=== PATIENT | female | born 1960 | race Caucasian/White ===

== ENCOUNTER 2019-09-15 10:44 | Inpatient (IN) | payer MEDICAID ==
[~2019-09-15] VITALS: Ht 165.1 cm; Wt 87.3 kg
[~2019-09-15 10:44] MED LIST: ALBU18 INH; CLON0.5T; DULO20CA PO; GABA100C; INSUPOW; QUET25TA37; TRAM50TA2
[2019-09-15 11:42] LABS: Basophils # (auto) 0 10 ^3/uL (0-0.2); Basophils % (auto) 0.4 % (0.0-2.0); Eosinophils # (auto) 0.2 10 ^3/uL (0-0.8); Eosinophils % (auto) 1.8 % (0.0-7.0); Hematocrit 35.9 % (36.0-46.0); Hemoglobin 12.4 g/dL (12.2-16.2); Lymphocytes # (auto) 2.8 10 ^3/uL (0.4-5.4); Lymphocytes % (auto) 33.3 % (10.0-50.0); Mean Corpuscular Hemoglobin 32.8 pg (28.0-32.0); Mean Corpuscular Hgb Conc. 34.6 g/dL (32.0-36.0); Mean Corpuscular Volume 94.7 fL (80.0-100.0); Monocytes # (auto) 0.4 10 ^3/uL (0-1.3); Monocytes % (auto) 5.2 % (0.0-12.0); Neutrophils # (auto) 4.9 10 ^3/uL (1.6-8.6); Neutrophils % (auto) 59.3 % (37.0-80.0); Nucleated Red Blood Cells % 0.1 %; Platelet Count (auto) 336 10^3/uL (140-450); Red Blood Cells 3.79 10^6/uL (4.0-5.20); Red Cell Distribution Width 12.7 % (11.8-14.3); White Blood Cell 8.3 10^3/uL (4.4-10.8)
[2019-09-15 12:01] LABS: Albumin 3.8 g/dL (3.4-5.0); Calcium 10.6 mg/dL (8.5-10.1)
[2019-09-15 12:04] LABS: BUN/Creatinine Ratio 12.9; Bilirubin, Total 0.5 mg/dL (0.2-1.0); Total Protein 7.4 g/dL (6.4-8.2)
[2019-09-15] MEDS ORDERED: NITROGLYCERIN 0.4 MG SL TAB SL PRN (14:00)
[2019-09-15] MEDS ORDERED: MORPHINE SULF INJ 2 MG/ML SYRINGE 1ML IV PRN (14:00)
[2019-09-15] MEDS: SODIUM CHLORIDE 0.9% 1,000 ML IV SCH (14:22)
[2019-09-15 20:03] VITALS: BP 157/88
[2019-09-15] MEDS ORDERED: METF-370 PO (21:07)
[2019-09-15] MEDS ORDERED: LISI-646 PO (21:07)
[2019-09-15] MEDS ORDERED: METO-158 PO (21:07)
[2019-09-15] MEDS ORDERED: BUPR-40 PO (21:48)
[2019-09-15] MEDS ORDERED: LOVA20TA4 PO (21:48)
[2019-09-15] MEDS ORDERED: HCTZ25T PO (21:48)
[2019-09-15] MEDS ORDERED: LAMO25TA2 PO (21:48)
[2019-09-15] MEDS ORDERED: METO25TA5 PO (21:48)
[2019-09-15] MEDS ORDERED: BISA-13 PO (21:48)
[2019-09-15 22:00] VITALS: BP 157/88
[2019-09-15] MEDS ORDERED: BISACODYL 5 MG EC TAB PO PRN (22:45)
[2019-09-15] MEDS: lamoTRIgine 25 MG TAB PO SCH (23:02)
[2019-09-15] MEDS: METOPROLOL TARTRATE 25 MG TAB PO SCH (23:02)
[2019-09-16 05:00] VITALS: BP 153/94
[2019-09-16] MEDS: SODIUM CHLORIDE 0.9% 1,000 ML IV SCH ×3 (06:18→18:15)
[2019-09-16 09:04] VITALS: BP 124/60
[2019-09-16] MEDS: buPROPion HCL 75 MG TAB PO SCH (10:10)
[2019-09-16] MEDS: DULoxetine HCL 30 MG CAP PO SCH (10:10)
[2019-09-16] MEDS: METOPROLOL TARTRATE 25 MG TAB PO SCH ×2 (10:11→23:04)
[2019-09-16] MEDS: HCTZ 25 MG TAB PO SCH (10:11)
[2019-09-16] MEDS: LISINOPRIL 20 MG TAB PO SCH (10:11)
[2019-09-16] MEDS: lamoTRIgine 25 MG TAB PO SCH ×2 (10:11→23:02)
[2019-09-16 13:00] VITALS: BP 149/81
[2019-09-16] MEDS ORDERED: HYDRX10T PO (13:44)
[2019-09-16] MEDS ORDERED: DULO1CAP6 PO (13:50)
[2019-09-16] MEDS ORDERED: LISI-707 PO (13:51)
[2019-09-16] MEDS ORDERED: IBUP800T24 PO (15:27)
[2019-09-16 16:14] LABS: BUN/Creatinine Ratio 12.7; Calcium 10.5 mg/dL (8.5-10.1); Potassium 4.5 mmol/L (3.5-5.1)
[2019-09-16 17:11] VITALS: BP 133/79
[2019-09-16] MEDS: HYDROcodone-ACET 5/325MG TAB PO PRN (21:00)
[2019-09-16] MEDS ORDERED: DEXTROSE (50%) 50ML SYRG IV PRN (21:30)
[2019-09-16] MEDS ORDERED: ALBUTEROL SULF 2.5 MG/0.5ML(0.5%) NEB SOLN NEB PRN (21:30)
[2019-09-16 22:00] VITALS: BP 151/83
[2019-09-16] MEDS ORDERED: ATORVASTATIN 20 MG TAB PO SCH (22:00)
[2019-09-16 22:33] LABS: BUN/Creatinine Ratio 18.3; Calcium 10.1 mg/dL (8.5-10.1); Potassium 3.9 mmol/L (3.5-5.1)
[2019-09-16 22:59] VITALS: BP 133/79
[2019-09-16] MEDS: ACETAMINOPHEN 325 MG TAB PO PRN (23:06)
[2019-09-17] MEDS: SODIUM CHLORIDE 1 GM TAB PO SCH ×2 (01:01→09:59)
[2019-09-17] MEDS: ACCU-CHEK COMFORT CURVE STRIP VI SCH ×5 (01:02→16:14)
[2019-09-17 05:00] VITALS: BP 156/75
[2019-09-17] MEDS: InsuLIN REG 1unit/0.01ml Soln (100units/ml) SC SCH ×5 (05:28→16:16)
[2019-09-17 07:14] LABS: Basophils # (auto) 0 10 ^3/uL (0-0.2); Basophils % (auto) 0.6 % (0.0-2.0); Eosinophils # (auto) 0.3 10 ^3/uL (0-0.8); Eosinophils % (auto) 4.2 % (0.0-7.0); Hematocrit 34.3 % (36.0-46.0); Hemoglobin 11.7 g/dL (12.2-16.2); Lymphocytes # (auto) 2.4 10 ^3/uL (0.4-5.4); Lymphocytes % (auto) 40.5 % (10.0-50.0); Mean Corpuscular Hemoglobin 32.9 pg (28.0-32.0); Mean Corpuscular Hgb Conc. 34.2 g/dL (32.0-36.0); Mean Corpuscular Volume 96.2 fL (80.0-100.0); Monocytes # (auto) 0.4 10 ^3/uL (0-1.3); Monocytes % (auto) 6.1 % (0.0-12.0); Neutrophils # (auto) 2.9 10 ^3/uL (1.6-8.6); Neutrophils % (auto) 48.6 % (37.0-80.0); Nucleated Red Blood Cells % 0.2 %; Platelet Count (auto) 285 10^3/uL (140-450); Red Blood Cells 3.57 10^6/uL (4.0-5.20); Red Cell Distribution Width 12.6 % (11.8-14.3)
[2019-09-17 07:43] LABS: Calcium 9.6 mg/dL (8.5-10.1); Potassium 3.8 mmol/L (3.5-5.1)
[2019-09-17] MEDS: HYDROcodone-ACET 5/325MG TAB PO PRN ×2 (08:06→14:53)
[2019-09-17 09:00] VITALS: BP 162/90
[2019-09-17] MEDS: DULoxetine HCL 30 MG CAP PO SCH (09:59)
[2019-09-17] MEDS: lamoTRIgine 25 MG TAB PO SCH (10:00)
[2019-09-17] MEDS: HCTZ 25 MG TAB PO SCH (10:00)
[2019-09-17] MEDS: METOPROLOL TARTRATE 25 MG TAB PO SCH (10:01)
[2019-09-17] MEDS: LISINOPRIL 20 MG TAB PO SCH (10:01)
[2019-09-17] MEDS: buPROPion HCL 75 MG TAB PO SCH (10:01)
[2019-09-17] MEDS: ACETAMINOPHEN 325 MG TAB PO PRN (11:26)
[2019-09-17 13:03] VITALS: BP 156/88
[2019-09-17] MEDS ORDERED: LISI-646 PO ×2 (14:16→14:22)
[2019-09-17] MEDS ORDERED: SODC1T PO (14:22)
[2019-09-17 15:20] VITALS: BP 158/88
== END 2019-09-17 16:42 | disposition home or self-care (01) | DRG 426 ==
LOC: ER 10:44 → TELE 10:45 → TELE-CENTR 20:01
PROVIDERS: ADMIT Internal Medicine; ATTEND Internal Medicine
DX: E87.1 Hypo-osmolality and hyponatremia (principal); E11.65 Type 2 diabetes mellitus with hyperglycemia; F41.9 Anxiety disorder, unspecified; F17.210 Nicotine dependence, cigarettes, uncomplicated; E66.01 Morbid (severe) obesity due to excess calories; I10 Essential (primary) hypertension; F32.9 Major depressive disorder, single episode, unspecified; F20.9 Schizophrenia, unspecified; Z88.6 Allergy status to analgesic agent; Z91.041 Radiographic dye allergy status; Z79.899 Other long term (current) drug therapy; Z79.4 Long term (current) use of insulin; Z68.31 Body mass index [BMI] 31.0-31.9, adult
CPT/HCPCS: 36415; 70450; 80048; 80053; 82962; 85025; 96360; 99291; G0378; J1815

== ENCOUNTER 2021-06-21 23:59 | Emergency (ER) | payer MEDICAID ==
[~2021-06-21] VITALS: Ht 165.1 cm; Wt 88.9 kg
[~2021-06-21 23:59] MED LIST changes: +BISA-13 PO; +BUPR150T8 PO; -CLON0.5T; +DULO1CAP6 PO; -DULO20CA PO; -GABA100C; +HYDRX10T PO; -INSUPOW; +LAMO25TA2 PO; +LISI20TA28 PO; +LOVA20TA4 PO; +METF-370 PO; +METO25TA5 PO; -QUET25TA37; +SODC1T PO; -TRAM50TA2
[2021-06-22 01:43] LABS: Basophils # (auto) 0.1 10 ^3/uL (0-0.2); Basophils % (auto) 0.9 % (0.0-2.0); Eosinophils # (auto) 0.1 10 ^3/uL (0-0.8); Eosinophils % (auto) 1.8 % (0.0-7.0); Hemoglobin 12.7 g/dL (12.2-16.2); Lymphocytes # (auto) 0.5 10 ^3/uL (0.4-5.4); Lymphocytes % (auto) 5.8 % (10.0-50.0); Mean Corpuscular Hgb Conc. 34.3 g/dL (32.0-36.0); Mean Corpuscular Volume 93.5 fL (80.0-100.0); Monocytes # (auto) 0.2 10 ^3/uL (0-1.3); Monocytes % (auto) 2.1 % (0.0-12.0); Neutrophils # (auto) 7.2 10 ^3/uL (1.6-8.6); Neutrophils % (auto) 89.4 % (37.0-80.0); Red Blood Cells 3.96 10^6/uL (4.0-5.20); Red Cell Distribution Width 14.9 % (11.8-14.3); White Blood Cell 8.1 10^3/uL (4.4-10.8)
[2021-06-22 01:59] LABS: Potassium 3.6 mmol/L (3.5-5.1)
[2021-06-22] MEDS ORDERED: ACETAMINOPHEN 325 MG TAB PO ONE (02:00)
[2021-06-22 02:02] LABS: Albumin 3.1 g/dL (3.4-5.0); Calcium 9.2 mg/dL (8.5-10.1)
[2021-06-22 02:15] LABS: Bilirubin, Total 0.6 mg/dL (0.2-1.0); Total Protein 6.7 g/dL (6.4-8.2)
[2021-06-22 11:00] VITALS: BP 136/77
== END 2021-06-22 11:21 | disposition left against medical advice (07) ==
LOC: ER 06-22 00:05
DX: R07.89 Other chest pain (principal); J45.909 Unspecified asthma, uncomplicated; E11.9 Type 2 diabetes mellitus without complications; I10 Essential (primary) hypertension; Z87.891 Personal history of nicotine dependence
CPT/HCPCS: 36415; 71045; 80053; 83880; 84484; 85025; 93005

== ENCOUNTER 2021-09-09 11:47 | Emergency (ER) | payer MEDICAID ==
[~2021-09-09] VITALS: Ht 165.1 cm; Wt 93.4 kg
[2021-09-09 11:53] VITALS: BP 161/87
== END 2021-09-09 15:08 | disposition home or self-care (01) ==
LOC: ER 11:47
DX: S05.01XA Injury of conjunctiva and corneal abrasion without foreign body, right eye, initial encounter (principal); I10 Essential (primary) hypertension; I25.2 Old myocardial infarction; E11.9 Type 2 diabetes mellitus without complications; J45.909 Unspecified asthma, uncomplicated; Z95.1 Presence of aortocoronary bypass graft; Z87.891 Personal history of nicotine dependence; Z79.899 Other long term (current) drug therapy; Z88.8 Allergy status to other drugs, medicaments and biological substances; X58.XXXA Exposure to other specified factors, initial encounter; Y93.89 Activity, other specified; Y92.89 Other specified places as the place of occurrence of the external cause; Y99.8 Other external cause status

== ENCOUNTER 2021-10-11 22:24 | Inpatient (IN) | payer MEDICAID ==
[~2021-10-11] VITALS: Ht 172.7 cm; Wt 86.3 kg
[2021-10-11] MEDS ORDERED: SODIUM CHLORIDE 0.9% 500 ML IV ONE (23:15)
[2021-10-12] MEDS ORDERED: ACETAMINOPHEN 325 MG TAB PO ONE (01:45)
[2021-10-12 01:46] LABS: Basophils # (auto) 0 10 ^3/uL (0-0.2); Basophils % (auto) 0.5 % (0.0-2.0); Eosinophils # (auto) 0.2 10 ^3/uL (0-0.8); Eosinophils % (auto) 2.6 % (0.0-7.0); Hematocrit 31.1 % (36.0-46.0); Hemoglobin 10.8 g/dL (12.2-16.2); Lymphocytes % (auto) 37.3 % (10.0-50.0); Mean Corpuscular Hemoglobin 33.4 pg (28.0-32.0); Mean Corpuscular Hgb Conc. 34.7 g/dL (32.0-36.0); Mean Corpuscular Volume 96.3 fL (80.0-100.0); Monocytes # (auto) 0.5 10 ^3/uL (0-1.3); Monocytes % (auto) 5.9 % (0.0-12.0); Neutrophils # (auto) 4.3 10 ^3/uL (1.6-8.6); Neutrophils % (auto) 53.7 % (37.0-80.0); Nucleated Red Blood Cells % 0.1 %; Red Blood Cells 3.23 10^6/uL (4.0-5.20)
[2021-10-12 02:08] LABS: Alanine Aminotransferase 27 U/L (13-56); Albumin 3.4 g/dL (3.4-5.0); Anion Gap 12 (5-15); BUN/Creatinine Ratio 14.9; Blood Alcohol < 3.0 mg/dL (0-5); Blood Urea Nitrogen 20 mg/dL (7-18); Calcium 9.9 mg/dL (8.5-10.1); Carbon Dioxide 21 mmol/L (21-32); Chloride 92 mmol/L (98-107); GFR African American 52 mL/min; GFR Non-African American 43 mL/min; Glucose 278 mg/dL (74-106); Magnesium 1.1 mg/dL (1.6-2.6); Potassium 3.2 mmol/L (3.5-5.1); Sodium 125 mmol/L (136-145)
[2021-10-12 02:11] LABS: Alkaline Phosphatase 82 U/L (45-117); Aspartate Aminotransferase 16 U/L (15-37); Bilirubin, Total 0.9 mg/dL (0.2-1.0); Total Protein 6.8 g/dL (6.4-8.2)
[2021-10-12] MEDS ORDERED: SODIUM CHLORIDE 0.9% 1,000 ML IV ONE (02:30)
[2021-10-12] MEDS ORDERED: DEXTROSE (50%) 50ML SYRG IV PRN (03:15)
[2021-10-12] MEDS ORDERED: LORazepam 0.5 MG TAB PO PRN (03:15)
[2021-10-12] MEDS ORDERED: ONDANSETRON HCL 4 MG/2 ML VIAL IV PRN (03:15)
[2021-10-12] MEDS ORDERED: MORPHINE SULFATE INJ 2 MG/ml SYRG IV PRN (03:15)
[2021-10-12] MEDS ORDERED: ACETAMINOPHEN 325 MG TAB PO PRN (03:15)
[2021-10-12] MEDS: SODIUM CHLORIDE 0.9% 1,000 ML IV SCH ×2 (03:15→20:28)
[2021-10-12] MEDS ORDERED: DOCUSATE SOD 100 MG CAP PO PRN (03:15)
[2021-10-12] MEDS: InsuLIN REG 1unit/0.01ml Soln (100units/ml) SC SCH ×5 (04:00→20:35)
[2021-10-12] MEDS: ACCU-CHEK COMFORT CURVE STRIP VI SCH ×5 (04:00→20:35)
[2021-10-12] MEDS: POTASSIUM CHL 20MEQ/100ML 100 ML IV SCH ×2 (06:00→08:32)
[2021-10-12] MEDS: HYDROcodone-ACET 5/325MG TAB PO PRN ×2 (07:10→15:55)
[2021-10-12 09:34] LABS: Urine Bacteria FEW /hpf (None Seen); Urine Blood Negative /uL (Negative); Urine Budding Yeast MODERATE /hpf (None Seen); Urine Specific Gravity 1.011 (1.001-1.035); Urine WBC 6 /hpf (0 - 5)
[2021-10-12 09:42] LABS: Alcohol, Urine < 3.0 mg/dL (0-10); Amphetamine Screen, Urine NEGATIVE (NEGATIVE); Barbiturate Scree,Urine NEGATIVE (NEGATIVE); Benzodiazephine Screen, Urine NEGATIVE (NEGATIVE); Cannabinoid Screen, Urine NEGATIVE (NEGATIVE); Cocaine Screen, Urine NEGATIVE (NEGATIVE); Opiate Scree,Urine NEGATIVE (NEGATIVE); Phencyclidine Screen, Urine NEGATIVE (NEGATIVE)
[2021-10-12] MEDS: metroNIDAZOLE 500MG/100ML 100 ML IV SCH ×2 (13:25→22:34)
[2021-10-12 15:49] LABS: INR 1.07 (0.9-1.15)
[2021-10-12] MEDS ORDERED: HAL5T PO (16:00)
[2021-10-12] MEDS ORDERED: TRAZ100T3 PO (16:00)
[2021-10-12 17:00] VITALS: BP 111/65
[2021-10-12 22:00] VITALS: BP 118/71
[2021-10-12] MEDS: PANTOPRAZOLE 40 MG/10 ML VIAL INJ IV SCH (22:33)
[2021-10-13] MEDS: ACCU-CHEK COMFORT CURVE STRIP VI SCH ×6 (00:25→22:40)
[2021-10-13] MEDS: InsuLIN REG 1unit/0.01ml Soln (100units/ml) SC SCH ×6 (00:26→22:41)
[2021-10-13 05:00] VITALS: BP 110/79
[2021-10-13] MEDS: metroNIDAZOLE 500MG/100ML 100 ML IV SCH ×3 (05:45→21:32)
[2021-10-13 07:01] LABS: Basophils # (auto) 0 10 ^3/uL (0-0.2); Basophils % (auto) 0.7 % (0.0-2.0); Eosinophils # (auto) 0.2 10 ^3/uL (0-0.8); Eosinophils % (auto) 4.6 % (0.0-7.0); Hematocrit 29.6 % (36.0-46.0); Hemoglobin 10.4 g/dL (12.2-16.2); Lymphocytes % (auto) 39.3 % (10.0-50.0); Mean Corpuscular Hemoglobin 33.7 pg (28.0-32.0); Mean Corpuscular Hgb Conc. 35.2 g/dL (32.0-36.0); Mean Corpuscular Volume 95.6 fL (80.0-100.0); Monocytes # (auto) 0.4 10 ^3/uL (0-1.3); Monocytes % (auto) 7.3 % (0.0-12.0); Neutrophils # (auto) 2.4 10 ^3/uL (1.6-8.6); Neutrophils % (auto) 48.1 % (37.0-80.0); Nucleated Red Blood Cells % 0.2 %
[2021-10-13 07:13] LABS: Potassium 3.3 mmol/L (3.5-5.1)
[2021-10-13 07:24] LABS: Albumin 2.9 g/dL (3.4-5.0); BUN/Creatinine Ratio 17.1; Bilirubin, Total 0.7 mg/dL (0.2-1.0); Calcium 9.6 mg/dL (8.5-10.1); Total Protein 6.2 g/dL (6.4-8.2)
[2021-10-13 09:00] VITALS: BP 103/61
[2021-10-13] MEDS ORDERED: LIDOCAINE VISCOUS 2% 15ML UD ONE (09:09)
[2021-10-13] MEDS ORDERED: SODIUM CHLORIDE LOCK 10 ML ONE (09:09)
[2021-10-13] MEDS ORDERED: fentaNYL CITRATE 100 MCG/2 ML VL ONE (09:10)
[2021-10-13] MEDS ORDERED: diphenhdrAMINE HCL 50 MG/1 ML VL ONE (09:10)
[2021-10-13] MEDS ORDERED: MIDAZOLAM HCL 5 MG/ML-1ML VIAL ONE (09:10)
[2021-10-13] MEDS: CEFTRIAXONE SODIUM 2 GM in D5W 5% 50 ML IV SCH (10:00)
[2021-10-13] MEDS: PANTOPRAZOLE 40 MG/10 ML VIAL INJ IV SCH ×2 (11:07→21:33)
[2021-10-13] MEDS: HYDROcodone-ACET 5/325MG TAB PO PRN ×2 (11:07→18:19)
[2021-10-13] MEDS ORDERED: POTASSIUM CHL 20 Meq TABLET PO ONE (11:45)
[2021-10-13] MEDS ORDERED: hydrOXYzine HCL 10 MG TAB PO PRN (12:15)
[2021-10-13] MEDS: SODIUM CHLORIDE 0.9% 1,000 ML IV SCH (12:23)
[2021-10-13 13:00] VITALS: BP 157/87
[2021-10-13 17:00] VITALS: BP 137/79
[2021-10-13] MEDS: HALOPERIDOL 5 MG TAB PO SCH (18:19)
[2021-10-13] MEDS ORDERED: SOTALOL HCL 80 MG TAB PO ONE (20:45)
[2021-10-13] MEDS ORDERED: CYCLOPENTOLATE HCL 1% OPTH(EYE) SOL 2ML RIGHTEYE ONE (20:45)
[2021-10-13] MEDS ORDERED: METOPROLOL SUCCINATE XL 50 MG TAB PO ONE (20:45)
[2021-10-13] MEDS: TEMAZEPAM 15 MG CAP PO PRN (21:39)
[2021-10-13 22:00] VITALS: BP 141/82
[2021-10-13] MEDS: ERYTHROMY OPTH OINT 5mg/gm 1gm or 3.5gm tube OP SCH (22:00)
[2021-10-13] MEDS: DORZOLAMIDE HCL 2% OPTH(EYE) SOL 10ML RIGHTEYE SCH (22:00)
[2021-10-14] VITALS (7 sets, daily range): BP systolic 125–191; BP diastolic 72–91
[2021-10-14] MEDS: ACCU-CHEK COMFORT CURVE STRIP VI SCH ×6 (01:10→20:17)
[2021-10-14] MEDS: InsuLIN REG 1unit/0.01ml Soln (100units/ml) SC SCH ×6 (01:10→20:21)
[2021-10-14] MEDS: ERYTHROMY OPTH OINT 5mg/gm 1gm or 3.5gm tube OP SCH ×6 (02:00→22:15)
[2021-10-14] MEDS ORDERED: POLYMYXIN B OP SCH (04:00)
[2021-10-14] MEDS ORDERED: TRIMETHOPRIM OP SCH (04:00)
[2021-10-14] MEDS: HYDROcodone-ACET 5/325MG TAB PO PRN ×3 (04:58→17:32)
[2021-10-14] MEDS: metroNIDAZOLE 500MG/100ML 100 ML IV SCH (05:00)
[2021-10-14] MEDS: SODIUM CHLORIDE 0.9% 1,000 ML IV SCH ×2 (05:11→21:55)
[2021-10-14] MEDS: DORZOLAMIDE HCL 2% OPTH(EYE) SOL 10ML RIGHTEYE SCH (05:12)
[2021-10-14] MEDS: CYCLOPENTOLATE HCL 1% OPTH(EYE) SOL 2ML RIGHTEYE SCH ×3 (05:12→22:16)
[2021-10-14 06:36] LABS: Basophils # (auto) 0 10 ^3/uL (0-0.2); Basophils % (auto) 0.6 % (0.0-2.0); Eosinophils # (auto) 0.2 10 ^3/uL (0-0.8); Eosinophils % (auto) 3.2 % (0.0-7.0); Hematocrit 30.3 % (36.0-46.0); Hemoglobin 10.4 g/dL (12.2-16.2); Lymphocytes % (auto) 31.5 % (10.0-50.0); Mean Corpuscular Hgb Conc. 34.5 g/dL (32.0-36.0); Mean Corpuscular Volume 95.6 fL (80.0-100.0); Monocytes # (auto) 0.4 10 ^3/uL (0-1.3); Monocytes % (auto) 6.2 % (0.0-12.0); Neutrophils # (auto) 3.8 10 ^3/uL (1.6-8.6); Neutrophils % (auto) 58.5 % (37.0-80.0); Nucleated Red Blood Cells % 0.1 %; Red Blood Cells 3.17 10^6/uL (4.0-5.20); Red Cell Distribution Width 14.2 % (11.8-14.3); White Blood Cell 6.4 10^3/uL (4.4-10.8)
[2021-10-14 06:59] LABS: Albumin 2.9 g/dL (3.4-5.0); BUN/Creatinine Ratio 16.9; Calcium 9.6 mg/dL (8.5-10.1)
[2021-10-14 07:01] LABS: Bilirubin, Total 0.4 mg/dL (0.2-1.0); Total Protein 6.1 g/dL (6.4-8.2)
[2021-10-14] MEDS ORDERED: DULOXETINE HCL 60 MG PO SCH (10:00)
[2021-10-14] MEDS ORDERED: METOPROLOL SUCCINATE XL 50 MG TAB PO SCH (10:00)
[2021-10-14] MEDS ORDERED: SOTALOL HCL 80 MG TAB PO SCH (10:00)
[2021-10-14] MEDS: SOTALOL HCL 80 MG TAB PO SCH ×2 (10:11→22:15)
[2021-10-14] MEDS: CEFTRIAXONE SODIUM 2 GM in D5W 5% 50 ML IV SCH (10:12)
[2021-10-14] MEDS: PANTOPRAZOLE 40 MG/10 ML VIAL INJ IV SCH ×2 (10:12→22:16)
[2021-10-14] MEDS: HALOPERIDOL 5 MG TAB PO SCH (17:18)
[2021-10-14] MEDS ORDERED: cloNIDine 0.1 mg/24hr 7 DAY PATCH TD SCH (21:45)
[2021-10-14] MEDS ORDERED: LISINOPRIL 20 MG TAB PO ONE (21:45)
[2021-10-14] MEDS ORDERED: hydrALAZINE HCL 20 MG/ML VL IV PRN (21:45)
[2021-10-14] MEDS: DORZOLAMIDE HCL RIGHTEYE SCH (22:16)
[2021-10-14] MEDS: TIMOLOL MALEATE RIGHTEYE SCH (22:16)
[2021-10-14] MEDS: TEMAZEPAM 15 MG CAP PO PRN (22:19)
[2021-10-15] MEDS: ACCU-CHEK COMFORT CURVE STRIP VI SCH ×5 (00:12→16:29)
[2021-10-15] MEDS: InsuLIN REG 1unit/0.01ml Soln (100units/ml) SC SCH ×5 (01:06→16:28)
[2021-10-15] MEDS: ERYTHROMY OPTH OINT 5mg/gm 1gm or 3.5gm tube OP SCH ×5 (02:00→17:51)
[2021-10-15 05:00] VITALS: BP 154/82
[2021-10-15] MEDS: CYCLOPENTOLATE HCL 1% OPTH(EYE) SOL 2ML RIGHTEYE SCH ×2 (05:29→14:07)
[2021-10-15 05:50] LABS: Basophils # (auto) 0 10 ^3/uL (0-0.2); Basophils % (auto) 0.7 % (0.0-2.0); Eosinophils # (auto) 0.2 10 ^3/uL (0-0.8); Eosinophils % (auto) 2.9 % (0.0-7.0); Hematocrit 33.7 % (36.0-46.0); Hemoglobin 11.6 g/dL (12.2-16.2); Lymphocytes # (auto) 2.8 10 ^3/uL (0.4-5.4); Lymphocytes % (auto) 37.9 % (10.0-50.0); Mean Corpuscular Hgb Conc. 34.5 g/dL (32.0-36.0); Mean Corpuscular Volume 95.7 fL (80.0-100.0); Monocytes # (auto) 0.5 10 ^3/uL (0-1.3); Monocytes % (auto) 7.1 % (0.0-12.0); Neutrophils # (auto) 3.8 10 ^3/uL (1.6-8.6); Neutrophils % (auto) 51.4 % (37.0-80.0); Red Blood Cells 3.52 10^6/uL (4.0-5.20); Red Cell Distribution Width 14.6 % (11.8-14.3); White Blood Cell 7.3 10^3/uL (4.4-10.8)
[2021-10-15 06:05] LABS: Albumin 3.4 g/dL (3.4-5.0); Calcium 10.8 mg/dL (8.5-10.1)
[2021-10-15 06:07] LABS: BUN/Creatinine Ratio 12.5
[2021-10-15 06:10] LABS: Bilirubin, Total 0.5 mg/dL (0.2-1.0)
[2021-10-15 06:20] VITALS: BP 129/74
[2021-10-15] MEDS: HYDROcodone-ACET 5/325MG TAB PO PRN ×2 (08:57→14:10)
[2021-10-15 09:00] VITALS: BP 148/68
[2021-10-15] MEDS ORDERED: LISINOPRIL 20 MG TAB PO SCH (10:00)
[2021-10-15] MEDS: PANTOPRAZOLE 40 MG/10 ML VIAL INJ IV SCH (10:28)
[2021-10-15] MEDS: SOTALOL HCL 80 MG TAB PO SCH (10:32)
[2021-10-15] MEDS: DORZOLAMIDE HCL RIGHTEYE SCH (10:34)
[2021-10-15] MEDS: TIMOLOL MALEATE RIGHTEYE SCH (10:34)
[2021-10-15 13:00] VITALS: BP 148/92
[2021-10-15] MEDS ORDERED: amLODIPine BESYLATE 5 MG TAB PO SCH (13:32)
[2021-10-15] MEDS ORDERED: HYDR-4902 PO (14:02)
[2021-10-15] MEDS ORDERED: PANT40TA2 PO (14:02)
[2021-10-15] MEDS ORDERED: AML5T PO (14:02)
[2021-10-15] MEDS: SODIUM CHLORIDE 0.9% 1,000 ML IV SCH (14:07)
[2021-10-15 15:14] VITALS: BP 130/74
[2021-10-15 17:00] VITALS: BP 158/88
[2021-10-15] MEDS: HALOPERIDOL 5 MG TAB PO SCH (17:51)
== END 2021-10-15 19:38 | disposition home or self-care (01) | DRG 241 ==
LOC: ER 22:24 → EDBD 22:24 → OVERFLOW 10-12 03:15 → EAST 10-12 12:32 → CENTRAL 10-12 14:46
PROVIDERS: ADMIT Hospitalist; ATTEND Internal Medicine
PROC: 0DB68ZX Excision of Stomach, Via Natural or Artificial Opening Endoscopic, Diagnostic (ICD-10-PCS; principal; 2021-10-13 10:08)
DX: K29.71 Gastritis, unspecified, with bleeding (principal); E87.1 Hypo-osmolality and hyponatremia; K52.9 Noninfective gastroenteritis and colitis, unspecified; R55 Syncope and collapse; E87.6 Hypokalemia; E11.9 Type 2 diabetes mellitus without complications; Z20.822 Contact with and (suspected) exposure to COVID-19; I10 Essential (primary) hypertension; J45.909 Unspecified asthma, uncomplicated; Z95.1 Presence of aortocoronary bypass graft; Z87.891 Personal history of nicotine dependence; Z88.8 Allergy status to other drugs, medicaments and biological substances; I25.2 Old myocardial infarction
CPT/HCPCS: 36415; 70450; 71045; 80053; 80061; 80307; 80320; 81001; 82962; 83036; 83735; 83880; 84443; 84484; 85025; 85610; 87040; 87086; C9113; G0378; J0696; J1815; J2250; J3480; J3490; J7060

== ENCOUNTER 2021-10-27 23:23 | Emergency (ER) | payer MEDICAID ==
[~2021-10-27 23:23] MED LIST changes: +AML5T PO; -BISA-13 PO; +HAL5T PO; +HYDR-4902 PO; +PANT40TA2 PO; +TRAZ100T3 PO
[2021-10-27 23:54] LABS: Basophils # (auto) 0 10 ^3/uL (0-0.2); Basophils % (auto) 0.5 % (0.0-2.0); Eosinophils # (auto) 0 10 ^3/uL (0-0.8); Eosinophils % (auto) 0.7 % (0.0-7.0); Hematocrit 30.3 % (36.0-46.0); Hemoglobin 10.6 g/dL (12.2-16.2); Lymphocytes # (auto) 2.5 10 ^3/uL (0.4-5.4); Lymphocytes % (auto) 41.8 % (10.0-50.0); Mean Corpuscular Hemoglobin 33.9 pg (28.0-32.0); Mean Corpuscular Hgb Conc. 34.9 g/dL (32.0-36.0); Mean Corpuscular Volume 97.2 fL (80.0-100.0); Monocytes # (auto) 0.3 10 ^3/uL (0-1.3); Monocytes % (auto) 5.5 % (0.0-12.0); Neutrophils # (auto) 3.1 10 ^3/uL (1.6-8.6); Neutrophils % (auto) 51.5 % (37.0-80.0); Nucleated Red Blood Cells % 0.2 %; Red Blood Cells 3.11 10^6/uL (4.0-5.20); Red Cell Distribution Width 14.3 % (11.8-14.3)
[2021-10-28 00:16] LABS: Albumin 3.7 g/dL (3.4-5.0); BUN/Creatinine Ratio 13.6; Calcium 9.4 mg/dL (8.5-10.1); Potassium 3.9 mmol/L (3.5-5.1)
[2021-10-28 00:19] LABS: Bilirubin, Total 0.4 mg/dL (0.2-1.0); Total Protein 7.1 g/dL (6.4-8.2)
[2021-10-28 00:30] LABS: Urine Bacteria FEW /hpf (None Seen); Urine Blood Negative /uL (Negative); Urine Specific Gravity 1.004 (1.001-1.035); Urine WBC <1 /hpf (0 - 5)
[2021-10-28 02:00] VITALS: BP 189/107
[2021-10-28] MEDS ORDERED: LORazepam 0.5 MG TAB PO ONE (02:45)
[2021-10-28] MEDS ORDERED: FUROSEMIDE 40 MG/4 ML VIAL IV ONE (02:45)
== END 2021-10-28 02:55 | disposition home or self-care (01) ==
LOC: ER 23:23
DX: I51.7 Cardiomegaly (principal); R09.89 Other specified symptoms and signs involving the circulatory and respiratory systems; F41.9 Anxiety disorder, unspecified; I10 Essential (primary) hypertension; I48.91 Unspecified atrial fibrillation; E11.9 Type 2 diabetes mellitus without complications; I25.2 Old myocardial infarction; J45.909 Unspecified asthma, uncomplicated; Z95.1 Presence of aortocoronary bypass graft; Z87.891 Personal history of nicotine dependence; Z79.899 Other long term (current) drug therapy; Z88.8 Allergy status to other drugs, medicaments and biological substances; Z91.040 Latex allergy status
CPT/HCPCS: 36415; 71045; 80053; 81001; 82962; 83880; 84484; 85025; 93005

== ENCOUNTER 2022-05-08 21:50 | Inpatient (IN) | payer MEDICAID ==
[~2022-05-08] VITALS: Ht 165.1 cm; Wt 200.0 kg
[2022-05-08] MEDS ORDERED: LACTATED RINGER'S 1,000 ML IV ONE (23:00)
[2022-05-08 23:10] LABS: Alanine Aminotransferase 31 U/L (13-56); Albumin 3.5 g/dL (3.4-5.0); Anion Gap 11 (5-15); Aspartate Aminotransferase 24 U/L (15-37); BUN/Creatinine Ratio 24.7; Blood Alcohol < 3.0 mg/dL (0-5); Blood Urea Nitrogen 22 mg/dL (7-18); Calcium 9.3 mg/dL (8.5-10.1); Carbon Dioxide 18 mmol/L (21-32); Chloride 99 mmol/L (98-107); GFR African American 82 mL/min; GFR Non-African American 68 mL/min; Glucose 199 mg/dL (74-106); Potassium 4.6 mmol/L (3.5-5.1); Sodium 128 mmol/L (136-145)
[2022-05-08 23:12] LABS: Basophils # (auto) 0.1 10 ^3/uL (0-0.2); Basophils % (auto) 0.9 % (0.0-2.0); Eosinophils # (auto) 0.4 10 ^3/uL (0-0.8); Eosinophils % (auto) 6.2 % (0.0-7.0); Hematocrit 29.9 % (36.0-46.0); Lymphocytes # (auto) 2.3 10 ^3/uL (0.4-5.4); Lymphocytes % (auto) 34.9 % (10.0-50.0); Mean Corpuscular Hgb Conc. 33.6 g/dL (32.0-36.0); Mean Corpuscular Volume 95.1 fL (80.0-100.0); Monocytes # (auto) 0.5 10 ^3/uL (0-1.3); Monocytes % (auto) 7.4 % (0.0-12.0); Neutrophils # (auto) 3.3 10 ^3/uL (1.6-8.6); Neutrophils % (auto) 50.6 % (37.0-80.0); Nucleated Red Blood Cells % 0.1 %; Red Blood Cells 3.14 10^6/uL (4.0-5.20); Red Cell Distribution Width 13.4 % (11.8-14.3); White Blood Cell 6.5 10^3/uL (4.4-10.8)
[2022-05-08 23:14] LABS: Acetaminophen < 2.0 ug/mL (10-30); Alkaline Phosphatase 77 U/L (45-117); Bilirubin, Total 0.3 mg/dL (0.2-1.0); Salicylate < 1.7 mg/dL (2.8-20.0); Total Protein 6.6 g/dL (6.4-8.2)
[2022-05-09 02:43] LABS: Urine Bacteria FEW /hpf (None Seen); Urine Blood Negative /uL (Negative); Urine Specific Gravity 1.008 (1.001-1.035); Urine WBC 528 /hpf (0 - 5)
[2022-05-09 02:54] LABS: Alcohol, Urine < 3.0 mg/dL (0-10); Amphetamine Screen, Urine NEGATIVE (NEGATIVE); Barbiturate Scree,Urine NEGATIVE (NEGATIVE); Benzodiazephine Screen, Urine NEGATIVE (NEGATIVE); Cannabinoid Screen, Urine NEGATIVE (NEGATIVE); Cocaine Screen, Urine NEGATIVE (NEGATIVE); Opiate Scree,Urine NEGATIVE (NEGATIVE); Phencyclidine Screen, Urine NEGATIVE (NEGATIVE)
[2022-05-09] MEDS ORDERED: DOCUSATE SOD 100 MG CAP PO PRN (04:00)
[2022-05-09] MEDS ORDERED: DEXTROSE (50%) 50ML SYRG IV PRN (04:00)
[2022-05-09] MEDS ORDERED: hydrALAZINE HCL 20 MG/ML VL IV PRN (04:00)
[2022-05-09] MEDS ORDERED: HYDROcodone-ACET 5/325MG TAB PO PRN (04:00)
[2022-05-09] MEDS ORDERED: ACETAMINOPHEN 325 MG TAB PO PRN (04:00)
[2022-05-09] MEDS ORDERED: SODIUM CHLORIDE 0.9% 1,000 ML IV SCH (04:00)
[2022-05-09] MEDS ORDERED: ONDANSETRON HCL 4 MG/2 ML VIAL IV PRN (04:00)
[2022-05-09 04:27] LABS: Basophils # (auto) 0.1 10 ^3/uL (0-0.2); Basophils % (auto) 0.8 % (0.0-2.0); Eosinophils # (auto) 0.4 10 ^3/uL (0-0.8); Eosinophils % (auto) 6.5 % (0.0-7.0); Hematocrit 28.9 % (36.0-46.0); Hemoglobin 9.8 g/dL (12.2-16.2); Lymphocytes # (auto) 2.6 10 ^3/uL (0.4-5.4); Lymphocytes % (auto) 39.7 % (10.0-50.0); Mean Corpuscular Hemoglobin 32.2 pg (28.0-32.0); Mean Corpuscular Hgb Conc. 33.8 g/dL (32.0-36.0); Mean Corpuscular Volume 95.3 fL (80.0-100.0); Monocytes # (auto) 0.5 10 ^3/uL (0-1.3); Monocytes % (auto) 7.5 % (0.0-12.0); Neutrophils % (auto) 45.5 % (37.0-80.0); Nucleated Red Blood Cells % 0.1 %; Red Blood Cells 3.03 10^6/uL (4.0-5.20); Red Cell Distribution Width 13.3 % (11.8-14.3); White Blood Cell 6.5 10^3/uL (4.4-10.8)
[2022-05-09] MEDS ORDERED: NITROGLYCERIN 0.4 MG SL TAB SL PRN (04:30)
[2022-05-09] MEDS ORDERED: MORPHINE SULFATE INJ 2 MG/ml SYRG IV PRN (04:30)
[2022-05-09 04:41] LABS: Albumin 3.6 g/dL (3.4-5.0); Calcium 9.3 mg/dL (8.5-10.1); Potassium 4.4 mmol/L (3.5-5.1)
[2022-05-09 04:44] LABS: BUN/Creatinine Ratio 23.8; Bilirubin, Total 0.4 mg/dL (0.2-1.0); Total Protein 6.3 g/dL (6.4-8.2)
[2022-05-09] MEDS: ACCU-CHEK COMFORT CURVE STRIP VI SCH ×3 (06:51→17:23)
[2022-05-09] MEDS: InsuLIN REG 1unit/0.01ml Soln (100units/ml) SC SCH ×4 (07:04→17:24)
[2022-05-09] MEDS ORDERED: cefTRIAXone 1GM/50ML D5W 50 ML IV SCH (09:00)
[2022-05-09] MEDS ORDERED: CEFD300C2 PO (16:55)
[2022-05-09 17:57] VITALS: BP 150/98
[2022-05-09] MEDS ORDERED: InsuLIN REG 1unit/0.01ml Soln (100units/ml) SC SCH (22:00)
== END 2022-05-09 18:13 | disposition home or self-care (01) | DRG 812 ==
LOC: EDBD 21:50 → ER 21:50 → TELE 05-09 04:26
PROVIDERS: ADMIT Nurse Practitioner Family; ATTEND Internal Medicine
DX: T43.591A Poisoning by other antipsychotics and neuroleptics, accidental (unintentional), initial encounter (principal); E87.1 Hypo-osmolality and hyponatremia; F33.2 Major depressive disorder, recurrent severe without psychotic features; D64.9 Anemia, unspecified; E11.65 Type 2 diabetes mellitus with hyperglycemia; E78.5 Hyperlipidemia, unspecified; Z20.822 Contact with and (suspected) exposure to COVID-19; F51.04 Psychophysiologic insomnia; I10 Essential (primary) hypertension; I48.91 Unspecified atrial fibrillation; J45.909 Unspecified asthma, uncomplicated; N39.0 Urinary tract infection, site not specified; Y92.89 Other specified places as the place of occurrence of the external cause; I25.2 Old myocardial infarction; Z80.51 Family history of malignant neoplasm of kidney; Z87.891 Personal history of nicotine dependence; Z95.1 Presence of aortocoronary bypass graft; Z91.040 Latex allergy status; Z88.8 Allergy status to other drugs, medicaments and biological substances
CPT/HCPCS: 36415; 80053; 80307; 80320; 80329; 81001; 82962; 83036; 85025; 87086; 87088; 87186; 87426; 96361; 96365; 96375; 99291; G0378; J0696; J1815

== ENCOUNTER 2022-08-07 18:41 | Emergency (ER) | payer MEDICAID ==
[~2022-08-07] VITALS: Ht 165.1 cm; Wt 94.4 kg
[~2022-08-07 18:41] MED LIST changes: +CEFD300C2 PO
[2022-08-07 20:25] LABS: Basophils # (auto) 0.1 10 ^3/uL (0-0.2); Basophils % (auto) 0.9 % (0.0-2.0); Eosinophils # (auto) 0.4 10 ^3/uL (0-0.8); Eosinophils % (auto) 5.3 % (0.0-7.0); Hematocrit 34.9 % (36.0-46.0); Hemoglobin 11.8 g/dL (12.2-16.2); Lymphocytes # (auto) 3.4 10 ^3/uL (0.4-5.4); Mean Corpuscular Hemoglobin 31.7 pg (28.0-32.0); Mean Corpuscular Hgb Conc. 33.7 g/dL (32.0-36.0); Mean Corpuscular Volume 93.9 fL (80.0-100.0); Monocytes # (auto) 0.5 10 ^3/uL (0-1.3); Monocytes % (auto) 5.9 % (0.0-12.0); Neutrophils # (auto) 3.4 10 ^3/uL (1.6-8.6); Neutrophils % (auto) 43.9 % (37.0-80.0); Nucleated Red Blood Cells % 0.2 %; Red Blood Cells 3.72 10^6/uL (4.0-5.20); Red Cell Distribution Width 12.7 % (11.8-14.3); White Blood Cell 7.8 10^3/uL (4.4-10.8)
[2022-08-07 21:28] LABS: Albumin 3.7 g/dL (3.4-5.0); Calcium 10.2 mg/dL (8.5-10.1); Potassium 4.4 mmol/L (3.5-5.1)
[2022-08-07 21:33] LABS: BUN/Creatinine Ratio 19.3 (10.0-20.0); Bilirubin, Total 0.4 mg/dL (0.2-1.0); Total Protein 7.6 g/dL (6.4-8.2)
[2022-08-07 23:56] VITALS: BP 199/93
== END 2022-08-08 00:10 | disposition home or self-care (01) ==
LOC: ER 18:41
DX: R53.1 Weakness (principal); R51.9 Headache, unspecified
CPT/HCPCS: 36415; 70450; 71045; 80053; 85025

== ENCOUNTER 2022-10-26 23:17 | Inpatient (IN) | payer MEDICAID ==
[~2022-10-26] VITALS: Ht 165.1 cm; Wt 92.6 kg
[~2022-10-26 23:17] MED LIST changes: -LISI20TA28 PO; +LISI20TA56 PO; +TRAZ-228 PO; -TRAZ100T3 PO
[2022-10-26] MEDS ORDERED: PROCHLORPERAZINE EDISYLATE 5 MG/ML 2ML VIAL IM ONE (23:45)
[2022-10-27 00:05] VITALS: PULSE 66; RESP 16; O2SAT 95
[2022-10-27 00:23] LABS: Basophils # (auto) 0 10 ^3/uL (0-0.2); Basophils % (auto) 0.4 % (0.0-2.0); Eosinophils # (auto) 0.1 10 ^3/uL (0-0.8); Eosinophils % (auto) 0.8 % (0.0-7.0); Hematocrit 36.7 % (36.0-46.0); Hemoglobin 12.4 g/dL (12.2-16.2); Lymphocytes # (auto) 1.3 10 ^3/uL (0.4-5.4); Lymphocytes % (auto) 17.5 % (10.0-50.0); Mean Corpuscular Hemoglobin 30.9 pg (28.0-32.0); Mean Corpuscular Hgb Conc. 33.8 g/dL (32.0-36.0); Mean Corpuscular Volume 91.6 fL (80.0-100.0); Monocytes # (auto) 0.3 10 ^3/uL (0-1.3); Monocytes % (auto) 4.5 % (0.0-12.0); Neutrophils # (auto) 5.6 10 ^3/uL (1.6-8.6); Neutrophils % (auto) 76.8 % (37.0-80.0); Nucleated Red Blood Cells % 0.1 %; Red Blood Cells 4.01 10^6/uL (4.0-5.20); Red Cell Distribution Width 12.8 % (11.8-14.3); White Blood Cell 7.2 10^3/uL (4.4-10.8)
[2022-10-27 00:31] LABS: Albumin 3.3 g/dL (3.4-5.0); BUN/Creatinine Ratio 27.3 (10.0-20.0); Calcium 10.5 mg/dL (8.5-10.1)
[2022-10-27 00:33] LABS: Bilirubin, Total 0.5 mg/dL (0.2-1.0); Total Protein 7.5 g/dL (6.4-8.2)
[2022-10-27] MEDS ORDERED: cefTRIAXone 1GM/50ML D5W 50 ML IV ONE (02:15)
[2022-10-27] MEDS ORDERED: SODIUM CHLORIDE 0.9% 1,000 ML IV ONE ×2 (03:15→11:45)
[2022-10-27 04:11] LABS: Urine Bacteria NONE SEEN /hpf (None Seen); Urine Blood Negative /uL (Negative); Urine Clarity Clear (Clear); Urine Color Colorless (Yellow); Urine Protein, UAD 1+ (Negative); Urine Specific Gravity 1.016 (1.001-1.035); Urine Urobilinogen Normal (Negative); Urine WBC 16 /hpf (0 - 5)
[2022-10-27] MEDS ORDERED: DEXTROSE (50%) 50ML SYRG IV PRN ×2 (06:30→16:30)
[2022-10-27] MEDS ORDERED: MORPHINE SULFATE INJ 2 MG/ml SYRG IV PRN (06:30)
[2022-10-27] MEDS ORDERED: NITROGLYCERIN 0.4 MG SL TAB SL PRN (06:30)
[2022-10-27] MEDS ORDERED: ONDANSETRON HCL 4 MG/2 ML VIAL IV PRN (06:30)
[2022-10-27] MEDS ORDERED: cloNIDine HCL 0.1 MG TAB PO PRN (06:30)
[2022-10-27 07:09] LABS: BUN/Creatinine Ratio 24.6 (10.0-20.0); Calcium 10.1 mg/dL (8.5-10.1); Potassium 4.2 mmol/L (3.5-5.1)
[2022-10-27] MEDS: InsuLIN REG 1unit/0.01ml Soln (100units/ml) SC SCH ×4 (07:59→20:16)
[2022-10-27] MEDS: ACCU-CHEK COMFORT CURVE STRIP VI SCH ×4 (08:02→20:18)
[2022-10-27 08:41] VITALS: PULSE 66; RESP 26; O2SAT 97
[2022-10-27] MEDS: cefTRIAXone 1GM/50ML D5W 50 ML IV SCH (09:10)
[2022-10-27] MEDS ORDERED: ENOXAPARIN SOD 100 MG/1 ML SYRINGE SC SCH (10:00)
[2022-10-27] MEDS ORDERED: PANTOPRAZOLE 40 MG TAB PO SCH (10:00)
[2022-10-27 12:21] LABS: Base Excess -4.7 mmol/L (-2.0-2.0)
[2022-10-27 12:34] LABS: BUN/Creatinine Ratio 24.6 (10.0-20.0); Calcium 10.2 mg/dL (8.5-10.1); Potassium 3.6 mmol/L (3.5-5.1)
[2022-10-27] MEDS: hydrALAZINE HCL 25 MG TAB PO SCH ×2 (14:18→22:57)
[2022-10-27 14:55] LABS: Urine Protein/Creatinine Ratio 0.95
[2022-10-27] MEDS: ACETAMINOPHEN 325 MG TAB PO PRN (15:52)
[2022-10-27] MEDS: SODIUM CHLORIDE 0.9% 1,000 ML IV SCH (16:30)
[2022-10-27 17:00] VITALS: BP 131/62; PULSE 81; RESP 18; TEMP 36.7
[2022-10-27 18:11] VITALS: BP 146/8; PULSE 63; RESP 20; TEMP 97.5; O2SAT 97
[2022-10-27 20:00] VITALS: BP 131/62; PULSE 58; PULSE 59; TEMP 36.4
[2022-10-27 22:00] VITALS: BP 164/79; PULSE 66; RESP 19; TEMP 97.4; O2SAT 100
[2022-10-27] MEDS: SOTALOL HCL 80 MG TAB PO SCH (22:58)
[2022-10-28] VITALS (8 sets, daily range): BP systolic 112–188; BP diastolic 65–95; PULSE 47–81; RESP 17–22; TEMP 92.6–98.4; O2SAT 97–100
[2022-10-28] MEDS: ACCU-CHEK COMFORT CURVE STRIP VI SCH ×6 (00:17→23:20)
[2022-10-28] MEDS: InsuLIN REG 1unit/0.01ml Soln (100units/ml) SC SCH ×6 (00:26→23:26)
[2022-10-28] MEDS: ACETAMINOPHEN 325 MG TAB PO PRN ×3 (00:33→21:20)
[2022-10-28] MEDS: SODIUM CHLORIDE 0.9% 1,000 ML IV SCH ×2 (05:50→08:19)
[2022-10-28] MEDS: hydrALAZINE HCL 25 MG TAB PO SCH ×3 (06:43→21:07)
[2022-10-28 06:56] LABS: Basophils # (auto) 0 10 ^3/uL (0-0.2); Basophils % (auto) 0.5 % (0.0-2.0); Eosinophils # (auto) 0.1 10 ^3/uL (0-0.8); Eosinophils % (auto) 2.1 % (0.0-7.0); Hematocrit 35.3 % (36.0-46.0); Lymphocytes # (auto) 2.1 10 ^3/uL (0.4-5.4); Mean Corpuscular Hemoglobin 31.1 pg (28.0-32.0); Mean Corpuscular Hgb Conc. 34.1 g/dL (32.0-36.0); Mean Corpuscular Volume 91.1 fL (80.0-100.0); Monocytes # (auto) 0.4 10 ^3/uL (0-1.3); Monocytes % (auto) 5.6 % (0.0-12.0); Neutrophils # (auto) 4.3 10 ^3/uL (1.6-8.6); Neutrophils % (auto) 61.8 % (37.0-80.0); Nucleated Red Blood Cells % 0.1 %; Red Blood Cells 3.87 10^6/uL (4.0-5.20); Red Cell Distribution Width 12.6 % (11.8-14.3); White Blood Cell 6.9 10^3/uL (4.4-10.8)
[2022-10-28 07:03] LABS: Calcium 10.4 mg/dL (8.5-10.1); Potassium 4.4 mmol/L (3.5-5.1)
[2022-10-28 07:07] LABS: BUN/Creatinine Ratio 21.8 (10.0-20.0); Bilirubin, Total 0.3 mg/dL (0.2-1.0); Total Protein 6.6 g/dL (6.4-8.2)
[2022-10-28] MEDS: cefTRIAXone 1GM/50ML D5W 50 ML IV SCH (08:19)
[2022-10-28] MEDS: SOTALOL HCL 80 MG TAB PO SCH ×2 (08:36→21:08)
[2022-10-28] MEDS ORDERED: ENOXAPARIN SOD 80 MG/0.8ML SYRINGE SC SCH (10:00)
[2022-10-28] MEDS ORDERED: amLODIPine BESYLATE 5 MG TAB PO SCH (10:00)
[2022-10-28] MEDS: METOCLOPRAMIDE HCL 5MG/ml INJ 2ml VIAL IV PRN ×2 (12:06→21:06)
[2022-10-28] MEDS ORDERED: VORT10TA PO (14:23)
[2022-10-28] MEDS ORDERED: ARIP2TAB PO (14:30)
[2022-10-28] MEDS ORDERED: BENZ1TAB6 PO ×2 (14:30)
[2022-10-28] MEDS: INSULIN LANTUS (GLARGINE) 1 /0.01ml (100units/ml) SC SCH (23:26)
[2022-10-29] VITALS (7 sets, daily range): BP systolic 162–199; BP diastolic 66–106; PULSE 42–87; RESP 18–20; TEMP 97.7–99; O2SAT 94–100
[2022-10-29] MEDS: ACCU-CHEK COMFORT CURVE STRIP VI SCH ×4 (06:08→23:05)
[2022-10-29] MEDS: InsuLIN REG 1unit/0.01ml Soln (100units/ml) SC SCH ×4 (06:11→23:10)
[2022-10-29] MEDS: hydrALAZINE HCL 25 MG TAB PO SCH ×2 (06:13→21:09)
[2022-10-29 07:02] LABS: Potassium 3.9 mmol/L (3.5-5.1)
[2022-10-29 07:09] LABS: Calcium 9.9 mg/dL (8.5-10.1)
[2022-10-29] MEDS ORDERED: ONDANSETRON HCL 4 MG/2 ML VIAL IV ONE (09:15)
[2022-10-29] MEDS ORDERED: IBUPROFEN 400 MG TAB PO PRN (09:15)
[2022-10-29] MEDS: SOTALOL HCL 80 MG TAB PO SCH ×2 (09:16→21:08)
[2022-10-29] MEDS: cefTRIAXone 1GM/50ML D5W 50 ML IV SCH (09:16)
[2022-10-29] MEDS: SODIUM CHLORIDE 0.9% 1,000 ML IV SCH ×2 (09:17→22:34)
[2022-10-29] MEDS: amLODIPine BESYLATE 5 MG TAB PO SCH (09:27)
[2022-10-29] MEDS: METOCLOPRAMIDE HCL 5MG/ml INJ 2ml VIAL IV PRN ×2 (09:37→18:30)
[2022-10-29] MEDS: DOXYCYCLINE 100MG/250ML 250 ML IV SCH (14:12)
[2022-10-29] MEDS ORDERED: DOCUSATE SOD 100 MG CAP PO ONE (14:15)
[2022-10-29] MEDS: LACTULOSE 20Gm/30ML SOLN PO SCH (22:00)
[2022-10-29] MEDS: TEMAZEPAM 15 MG CAP PO PRN (22:13)
[2022-10-29] MEDS: hydrALAZINE HCL 20 MG/ML VL IV PRN (22:22)
[2022-10-29] MEDS: ACETAMINOPHEN 325 MG TAB PO PRN (22:55)
[2022-10-29] MEDS: INSULIN LANTUS (GLARGINE) 1 /0.01ml (100units/ml) SC SCH (23:10)
[2022-10-30] VITALS (8 sets, daily range): BP systolic 133–172; BP diastolic 73–89; PULSE 54–78; RESP 18–20; TEMP 98.3–99.3; O2SAT 94–99
[2022-10-30] MEDS: DOXYCYCLINE 100MG/250ML 250 ML IV SCH ×2 (01:35→15:23)
[2022-10-30] MEDS: ACCU-CHEK COMFORT CURVE STRIP VI SCH ×4 (05:32→23:47)
[2022-10-30] MEDS: hydrALAZINE HCL 25 MG TAB PO SCH ×3 (05:36→22:00)
[2022-10-30] MEDS: InsuLIN REG 1unit/0.01ml Soln (100units/ml) SC SCH ×4 (05:36→23:46)
[2022-10-30 06:55] LABS: Calcium 9.9 mg/dL (8.5-10.1); Potassium 3.7 mmol/L (3.5-5.1)
[2022-10-30 06:56] LABS: BUN/Creatinine Ratio 16.8 (10.0-20.0)
[2022-10-30] MEDS: LACTULOSE 20Gm/30ML SOLN PO SCH ×2 (08:54→22:00)
[2022-10-30] MEDS: SOTALOL HCL 80 MG TAB PO SCH ×2 (09:00→22:00)
[2022-10-30] MEDS: amLODIPine BESYLATE 5 MG TAB PO SCH (09:00)
[2022-10-30] MEDS: PANTOPRAZOLE 40 MG TAB PO SCH (12:22)
[2022-10-30] MEDS: IBUPROFEN 600 MG TAB PO PRN (12:22)
[2022-10-30] MEDS: SODIUM CHLORIDE 0.9% 1,000 ML IV SCH (12:26)
[2022-10-30] MEDS: METOCLOPRAMIDE HCL 5MG/ml INJ 2ml VIAL IV PRN (18:32)
[2022-10-30] MEDS: ACETAMINOPHEN 325 MG TAB PO PRN (20:34)
[2022-10-30] MEDS: INSULIN LANTUS (GLARGINE) 1 /0.01ml (100units/ml) SC SCH (22:00)
[2022-10-31] MEDS: SODIUM CHLORIDE 0.9% 1,000 ML IV SCH ×2 (00:30→13:50)
[2022-10-31] MEDS: DOXYCYCLINE 100MG/250ML 250 ML IV SCH ×2 (01:10→12:43)
[2022-10-31] MEDS: ACETAMINOPHEN 325 MG TAB PO PRN ×3 (01:14→20:52)
[2022-10-31 05:13] VITALS: BP 150/81; PULSE 63; RESP 18; TEMP 97.9; O2SAT 98
[2022-10-31] MEDS: hydrALAZINE HCL 25 MG TAB PO SCH (06:00)
[2022-10-31] MEDS: ACCU-CHEK COMFORT CURVE STRIP VI SCH ×4 (06:00→21:43)
[2022-10-31 07:13] LABS: Basophils # (auto) 0 10 ^3/uL (0-0.2); Basophils % (auto) 0.6 % (0.0-2.0); Eosinophils # (auto) 0.1 10 ^3/uL (0-0.8); Eosinophils % (auto) 1.5 % (0.0-7.0); Hematocrit 32.9 % (36.0-46.0); Hemoglobin 10.8 g/dL (12.2-16.2); Lymphocytes # (auto) 2.5 10 ^3/uL (0.4-5.4); Lymphocytes % (auto) 33.2 % (10.0-50.0); Mean Corpuscular Hemoglobin 30.4 pg (28.0-32.0); Mean Corpuscular Hgb Conc. 32.9 g/dL (32.0-36.0); Mean Corpuscular Volume 92.3 fL (80.0-100.0); Monocytes # (auto) 0.5 10 ^3/uL (0-1.3); Monocytes % (auto) 6.5 % (0.0-12.0); Neutrophils # (auto) 4.5 10 ^3/uL (1.6-8.6); Neutrophils % (auto) 58.2 % (37.0-80.0); Nucleated Red Blood Cells % 0.2 %; Red Blood Cells 3.56 10^6/uL (4.0-5.20); Red Cell Distribution Width 12.9 % (11.8-14.3); White Blood Cell 7.7 10^3/uL (4.4-10.8)
[2022-10-31 07:38] LABS: Potassium 3.5 mmol/L (3.5-5.1)
[2022-10-31 07:48] LABS: BUN/Creatinine Ratio 13.8 (10.0-20.0); Calcium 10.1 mg/dL (8.5-10.1); Magnesium 2.2 mg/dL (1.6-2.6)
[2022-10-31 08:00] VITALS: PULSE 50
[2022-10-31 09:00] VITALS: BP 175/75; PULSE 61; RESP 18; TEMP 98; O2SAT 99
[2022-10-31] MEDS ORDERED: hydrALAZINE HCL 25 MG TAB PO PRN (09:15)
[2022-10-31] MEDS: LACTULOSE 20Gm/30ML SOLN PO SCH ×3 (10:34→21:45)
[2022-10-31] MEDS: PANTOPRAZOLE 40 MG TAB PO SCH (10:35)
[2022-10-31] MEDS: amLODIPine BESYLATE 5 MG TAB PO SCH (10:35)
[2022-10-31] MEDS: SOTALOL HCL 80 MG TAB PO SCH ×2 (10:36→21:31)
[2022-10-31] MEDS: hydrALAZINE HCL 20 MG/ML VL IV PRN ×2 (10:43→17:29)
[2022-10-31] MEDS: METOCLOPRAMIDE HCL 5MG/ml INJ 2ml VIAL IV PRN ×2 (12:42→20:51)
[2022-10-31] MEDS: InsuLIN REG 1unit/0.01ml Soln (100units/ml) SC SCH ×3 (12:51→21:37)
[2022-10-31 13:00] VITALS: BP 165/80; PULSE 62; RESP 20; TEMP 97.9; O2SAT 100
[2022-10-31] MEDS: IBUPROFEN 600 MG TAB PO PRN (13:07)
[2022-10-31 17:00] VITALS: BP 164/63; PULSE 66; RESP 18; TEMP 98.1; O2SAT 95
[2022-10-31] MEDS ORDERED: NIFEdipine ER 30 MG TAB PO ONE (17:30)
[2022-10-31 20:00] VITALS: PULSE 50; PULSE 85; RESP 18
[2022-10-31] MEDS: TEMAZEPAM 15 MG CAP PO PRN (21:31)
[2022-10-31] MEDS: INSULIN LANTUS (GLARGINE) 1 /0.01ml (100units/ml) SC SCH (21:33)
[2022-11-01] VITALS (8 sets, daily range): BP systolic 141–156; BP diastolic 59–90; PULSE 56–75; RESP 16–20; TEMP 97.4–98.3; O2SAT 97–100
[2022-11-01] MEDS: DOXYCYCLINE 100MG/250ML 250 ML IV SCH ×2 (01:59→13:45)
[2022-11-01] MEDS: hydrALAZINE HCL 20 MG/ML VL IV PRN (05:25)
[2022-11-01] MEDS: ACCU-CHEK COMFORT CURVE STRIP VI SCH ×3 (05:30→17:50)
[2022-11-01] MEDS: InsuLIN REG 1unit/0.01ml Soln (100units/ml) SC SCH ×3 (06:13→17:53)
[2022-11-01] MEDS: ACETAMINOPHEN 325 MG TAB PO PRN ×3 (06:46→22:13)
[2022-11-01 10:47] LABS: Calcium 9.6 mg/dL (8.5-10.1); Potassium 3.3 mmol/L (3.5-5.1)
[2022-11-01] MEDS: SOTALOL HCL 80 MG TAB PO SCH ×2 (10:49→22:14)
[2022-11-01] MEDS: NIFEdipine ER 30 MG TAB PO SCH (10:50)
[2022-11-01] MEDS: PANTOPRAZOLE 40 MG TAB PO SCH (10:51)
[2022-11-01 11:27] LABS: Basophils # (auto) 0 10 ^3/uL (0-0.2); Basophils % (auto) 0.4 % (0.0-2.0); Eosinophils # (auto) 0.1 10 ^3/uL (0-0.8); Eosinophils % (auto) 1.8 % (0.0-7.0); Hemoglobin 11.3 g/dL (12.2-16.2); Lymphocytes # (auto) 1.8 10 ^3/uL (0.4-5.4); Lymphocytes % (auto) 25.3 % (10.0-50.0); Mean Corpuscular Hemoglobin 30.4 pg (28.0-32.0); Mean Corpuscular Hgb Conc. 33.2 g/dL (32.0-36.0); Mean Corpuscular Volume 91.5 fL (80.0-100.0); Monocytes # (auto) 0.4 10 ^3/uL (0-1.3); Monocytes % (auto) 5.4 % (0.0-12.0); Neutrophils # (auto) 4.7 10 ^3/uL (1.6-8.6); Neutrophils % (auto) 67.1 % (37.0-80.0); Nucleated Red Blood Cells % 0.1 %; Red Blood Cells 3.71 10^6/uL (4.0-5.20); Red Cell Distribution Width 13.1 % (11.8-14.3)
[2022-11-01] MEDS ORDERED: BISACODYL 5 MG EC TAB PO ONE (12:00)
[2022-11-01 15:31] LABS: Urine Bacteria FEW /hpf (None Seen); Urine Blood Negative /uL (Negative); Urine Clarity Clear (Clear); Urine Color Yellow (Yellow); Urine Protein, UAD 2+ (Negative); Urine Specific Gravity 1.014 (1.001-1.035); Urine Urobilinogen Normal (Negative); Urine WBC 2 /hpf (0 - 5)
[2022-11-01] MEDS: LACTULOSE 20Gm/30ML SOLN PO SCH (22:00)
[2022-11-01] MEDS: TEMAZEPAM 15 MG CAP PO PRN (22:14)
[2022-11-02] MEDS: ACCU-CHEK COMFORT CURVE STRIP VI SCH ×3 (00:11→12:33)
[2022-11-02] MEDS: INSULIN LANTUS (GLARGINE) 1 /0.01ml (100units/ml) SC SCH (00:13)
[2022-11-02] MEDS: InsuLIN REG 1unit/0.01ml Soln (100units/ml) SC SCH ×3 (00:14→12:37)
[2022-11-02] MEDS: DOXYCYCLINE 100MG/250ML 250 ML IV SCH ×2 (01:38→13:30)
[2022-11-02 05:00] VITALS: BP 150/74; PULSE 58; RESP 18; TEMP 98.5; O2SAT 97
[2022-11-02 08:00] VITALS: PULSE 70
[2022-11-02 08:01] LABS: Basophils # (auto) 0 10 ^3/uL (0-0.2); Basophils % (auto) 0.7 % (0.0-2.0); Eosinophils # (auto) 0.2 10 ^3/uL (0-0.8); Eosinophils % (auto) 2.7 % (0.0-7.0); Hemoglobin 10.7 g/dL (12.2-16.2); Lymphocytes # (auto) 2.2 10 ^3/uL (0.4-5.4); Lymphocytes % (auto) 36.1 % (10.0-50.0); Mean Corpuscular Hemoglobin 30.3 pg (28.0-32.0); Mean Corpuscular Hgb Conc. 33.4 g/dL (32.0-36.0); Mean Corpuscular Volume 90.7 fL (80.0-100.0); Monocytes # (auto) 0.4 10 ^3/uL (0-1.3); Monocytes % (auto) 6.2 % (0.0-12.0); Neutrophils # (auto) 3.3 10 ^3/uL (1.6-8.6); Neutrophils % (auto) 54.3 % (37.0-80.0); Red Blood Cells 3.53 10^6/uL (4.0-5.20); Red Cell Distribution Width 12.7 % (11.8-14.3); White Blood Cell 6.1 10^3/uL (4.4-10.8)
[2022-11-02 08:21] LABS: BUN/Creatinine Ratio 14.9 (10.0-20.0); Calcium 9.5 mg/dL (8.5-10.1); Potassium 3.1 mmol/L (3.5-5.1)
[2022-11-02 09:00] VITALS: BP 150/72; PULSE 68; RESP 20; TEMP 98.5; O2SAT 97
[2022-11-02] MEDS: PANTOPRAZOLE 40 MG TAB PO SCH (09:59)
[2022-11-02] MEDS: POTASSIUM CHL 20MEQ/100ML 100 ML IV SCH ×2 (10:00→12:05)
[2022-11-02] MEDS: SOTALOL HCL 80 MG TAB PO SCH (10:00)
[2022-11-02] MEDS: LACTULOSE 20Gm/30ML SOLN PO SCH (10:00)
[2022-11-02] MEDS: NIFEdipine ER 30 MG TAB PO SCH (10:06)
[2022-11-02] MEDS: ACETAMINOPHEN 325 MG TAB PO PRN (10:12)
[2022-11-02 13:00] VITALS: BP 147/87; PULSE 59; RESP 18; TEMP 97.5; O2SAT 100
[2022-11-02] MEDS ORDERED: DOXY100C4 PO (13:15)
[2022-11-02] MEDS ORDERED: SOTA80TA20 PO (13:15)
[2022-11-02] MEDS ORDERED: METF-929 PO (13:15)
[2022-11-02] MEDS ORDERED: NIFE1TAB31 PO (13:15)
[2022-11-02] MEDS ORDERED: POTA-180 PO (13:16)
[2022-11-02] MEDS ORDERED: INSU1INJ19 SC (13:16)
[2022-11-02] MEDS ORDERED: POTASSIUM EFFERVESENT TAB 25 MEQ PO ONE (14:00)
== END 2022-11-02 18:10 | disposition home or self-care (01) | DRG 463 ==
LOC: EDBD 23:17 → ER 23:23 → TELE 10-27 06:27 → TELE-WESTW 10-27 16:31
PROVIDERS: ADMIT Internal Medicine; ATTEND Student in an Organized Health Care Education/Training Program
DX: N30.00 Acute cystitis without hematuria (principal); N17.0 Acute kidney failure with tubular necrosis; I21.A1 Myocardial infarction type 2; E11.319 Type 2 diabetes mellitus with unspecified diabetic retinopathy without macular edema; E87.1 Hypo-osmolality and hyponatremia; E86.0 Dehydration; E11.22 Type 2 diabetes mellitus with diabetic chronic kidney disease; B95.62 Methicillin resistant Staphylococcus aureus infection as the cause of diseases classified elsewhere; I48.91 Unspecified atrial fibrillation; F25.9 Schizoaffective disorder, unspecified; E11.65 Type 2 diabetes mellitus with hyperglycemia; E11.36 Type 2 diabetes mellitus with diabetic cataract; J45.909 Unspecified asthma, uncomplicated; E78.5 Hyperlipidemia, unspecified; R00.1 Bradycardia, unspecified; K80.20 Calculus of gallbladder without cholecystitis without obstruction; I25.10 Atherosclerotic heart disease of native coronary artery without angina pectoris; E83.52 Hypercalcemia; R19.7 Diarrhea, unspecified; H17.9 Unspecified corneal scar and opacity; I12.9 Hypertensive chronic kidney disease with stage 1 through stage 4 chronic kidney disease, or unspecified chronic kidney disease; H57.11 Ocular pain, right eye; E66.01 Morbid (severe) obesity due to excess calories; F32.A Depression, unspecified; R77.8 Other specified abnormalities of plasma proteins; N18.2 Chronic kidney disease, stage 2 (mild); E87.6 Hypokalemia; Z79.899 Other long term (current) drug therapy; Z80.51 Family history of malignant neoplasm of kidney; Z95.1 Presence of aortocoronary bypass graft; Z87.891 Personal history of nicotine dependence; Z68.33 Body mass index [BMI] 33.0-33.9, adult; Z88.5 Allergy status to narcotic agent; Z91.041 Radiographic dye allergy status; Z91.040 Latex allergy status; Z91.148 Patient's other noncompliance with medication regimen for other reason; Z91.199 Patient's noncompliance with other medical treatment and regimen due to unspecified reason; Z71.6 Tobacco abuse counseling; Z79.84 Long term (current) use of oral hypoglycemic drugs
CPT/HCPCS: 36415; 70450; 71045; 71250; 74176; 76775; 80048; 80053; 81001; 82570; 82962; 83036; 83735; 84156; 84484; 85025; 87040; 87086; 87088; 87186; 93005; 93306; G0378; J0696; J1815; J2405; J3480; J3490

== ENCOUNTER 2022-11-04 21:14 | Inpatient (IN) | payer MEDICAID ==
[~2022-11-04] VITALS: Ht 165.1 cm; Wt 93.5 kg
[~2022-11-04 21:14] MED LIST changes: +ARIP2TAB PO; +BENZ1TAB6 PO; -CEFD300C2 PO; +DOXY100C4 PO; +INSU1INJ19 SC; -METF-370 PO; +METF-929 PO; +NIFE1TAB31 PO; +POTA-180 PO; +SOTA80TA20 PO; +VORT10TA PO
[2022-11-04 21:49] LABS: Basophils # (auto) 0.1 10 ^3/uL (0-0.2); Basophils % (auto) 0.7 % (0.0-2.0); Eosinophils # (auto) 0.2 10 ^3/uL (0-0.8); Eosinophils % (auto) 2.1 % (0.0-7.0); Hematocrit 31.9 % (36.0-46.0); Hemoglobin 10.6 g/dL (12.2-16.2); Lymphocytes # (auto) 1.8 10 ^3/uL (0.4-5.4); Lymphocytes % (auto) 23.4 % (10.0-50.0); Mean Corpuscular Hemoglobin 30.6 pg (28.0-32.0); Mean Corpuscular Hgb Conc. 33.3 g/dL (32.0-36.0); Mean Corpuscular Volume 91.9 fL (80.0-100.0); Monocytes # (auto) 0.5 10 ^3/uL (0-1.3); Monocytes % (auto) 6.6 % (0.0-12.0); Neutrophils # (auto) 5.2 10 ^3/uL (1.6-8.6); Neutrophils % (auto) 67.2 % (37.0-80.0); Nucleated Red Blood Cells % 0.1 %; Red Blood Cells 3.47 10^6/uL (4.0-5.20); Red Cell Distribution Width 13.2 % (11.8-14.3); White Blood Cell 7.8 10^3/uL (4.4-10.8)
[2022-11-04 21:52] VITALS: PULSE 66; RESP 12; O2SAT 99
[2022-11-04 22:07] LABS: Albumin 3.2 g/dL (3.4-5.0); Calcium 9.1 mg/dL (8.5-10.1); Magnesium 1.6 mg/dL (1.6-2.6)
[2022-11-04 22:11] LABS: INR 1.04 (0.9-1.15); Partial Thromboplastin Time 26.8 SEC (24.5-34.5)
[2022-11-04 22:12] LABS: Bilirubin, Total 0.4 mg/dL (0.2-1.0); Total Protein 6.9 g/dL (6.4-8.2)
[2022-11-04] MEDS ORDERED: ACETAMINOPHEN 325 MG TAB PO ONE (22:30)
[2022-11-04 23:53] LABS: Urine Bacteria NONE SEEN /hpf (None Seen); Urine Blood Negative /uL (Negative); Urine Specific Gravity 1.007 (1.001-1.035); Urine WBC 5 /hpf (0 - 5)
[2022-11-05] MEDS ORDERED: MORPHINE SULFATE INJ 2 MG/ml SYRG IV PRN (02:45)
[2022-11-05] MEDS ORDERED: hydrALAZINE HCL 20 MG/ML VL IV PRN (02:45)
[2022-11-05] MEDS ORDERED: NITROGLYCERIN 0.4 MG SL TAB SL PRN (02:45)
[2022-11-05] MEDS ORDERED: TEMAZEPAM 15 MG CAP PO PRN (02:45)
[2022-11-05] MEDS ORDERED: DEXTROSE (50%) 50ML SYRG IV PRN ×2 (02:45→13:45)
[2022-11-05] MEDS: DOXYCYCLINE 100MG/250ML 250 ML IV SCH ×2 (04:13→17:15)
[2022-11-05] MEDS: ACCU-CHEK COMFORT CURVE STRIP VI SCH ×4 (06:38→22:03)
[2022-11-05] MEDS: InsuLIN REG 1unit/0.01ml Soln (100units/ml) SC SCH ×3 (06:50→17:17)
[2022-11-05 08:13] VITALS: PULSE 79; RESP 16; O2SAT 97
[2022-11-05] MEDS ORDERED: NIFEdipine ER 30 MG TAB PO SCH (10:00)
[2022-11-05] MEDS: PANTOPRAZOLE 40 MG TAB PO SCH (10:45)
[2022-11-05 11:03] VITALS: PULSE 69; RESP 20; O2SAT 99
[2022-11-05] MEDS: INSULIN LANTUS (GLARGINE) 1 /0.01ml (100units/ml) SC SCH (13:45)
[2022-11-05 18:14] VITALS: PULSE 78; RESP 21; O2SAT 92
[2022-11-05 18:19] LABS: Calcium 9.2 mg/dL (8.5-10.1); Magnesium 1.7 mg/dL (1.6-2.6); Potassium 3.8 mmol/L (3.5-5.1)
[2022-11-05 18:22] LABS: BUN/Creatinine Ratio 17.5 (10.0-20.0)
[2022-11-05 20:00] VITALS: PULSE 60; PULSE 73; RESP 20; O2SAT 99
[2022-11-05 22:00] VITALS: BP_SYST 115; BP_SYST 157; BP_DIAS 73; BP_DIAS 80; PULSE 68; PULSE 85; RESP 20; TEMP 97.8; O2SAT 99
[2022-11-05] MEDS ORDERED: InsuLIN REG 1unit/0.01ml Soln (100units/ml) SC SCH (22:00)
[2022-11-05] MEDS: ATORVASTATIN 20 MG TAB PO SCH (22:03)
[2022-11-05 22:43] VITALS: BP 138/70; PULSE 92
[2022-11-06] VITALS (7 sets, daily range): BP systolic 123–157; BP diastolic 73–85; PULSE 69–82; RESP 15–20; TEMP 97.8–98.5; O2SAT 97–100
[2022-11-06] MEDS: ACETAMINOPHEN 325 MG TAB PO PRN ×2 (00:37→14:06)
[2022-11-06 06:11] LABS: Basophils # (auto) 0.1 10 ^3/uL (0-0.2); Eosinophils # (auto) 0.2 10 ^3/uL (0-0.8); Eosinophils % (auto) 3.9 % (0.0-7.0); Hematocrit 31.8 % (36.0-46.0); Hemoglobin 10.7 g/dL (12.2-16.2); Lymphocytes # (auto) 2.4 10 ^3/uL (0.4-5.4); Lymphocytes % (auto) 40.3 % (10.0-50.0); Mean Corpuscular Hemoglobin 30.7 pg (28.0-32.0); Mean Corpuscular Hgb Conc. 33.8 g/dL (32.0-36.0); Mean Corpuscular Volume 90.9 fL (80.0-100.0); Monocytes # (auto) 0.5 10 ^3/uL (0-1.3); Monocytes % (auto) 8.8 % (0.0-12.0); Neutrophils # (auto) 2.7 10 ^3/uL (1.6-8.6); Nucleated Red Blood Cells % 0.1 %; Red Cell Distribution Width 12.9 % (11.8-14.3)
[2022-11-06] MEDS: DOXYCYCLINE 100MG/250ML 250 ML IV SCH (06:28)
[2022-11-06] MEDS: INSULIN LANTUS (GLARGINE) 1 /0.01ml (100units/ml) SC SCH (06:30)
[2022-11-06 06:32] LABS: Calcium 9.5 mg/dL (8.5-10.1); Potassium 3.8 mmol/L (3.5-5.1)
[2022-11-06] MEDS: ACCU-CHEK COMFORT CURVE STRIP VI SCH ×4 (07:05→21:53)
[2022-11-06] MEDS: InsuLIN REG 1unit/0.01ml Soln (100units/ml) SC SCH ×4 (07:06→22:00)
[2022-11-06] MEDS ORDERED: DEXTROSE (50%) 50ML SYRG IV PRN (07:15)
[2022-11-06] MEDS ORDERED: INSULIN LANTUS (GLARGINE) 1 /0.01ml (100units/ml) SC ONE (07:15)
[2022-11-06] MEDS: LISINOPRIL 20 MG TAB PO SCH (09:15)
[2022-11-06] MEDS: PANTOPRAZOLE 40 MG TAB PO SCH (09:25)
[2022-11-06] MEDS: NIFEdipine ER 30 MG TAB PO SCH (09:26)
[2022-11-06] MEDS ORDERED: PANTOPRAZOLE 40 MG TAB PO SCH (10:00)
[2022-11-06] MEDS ORDERED: GADOTERATE MEG 10 MMOL/20ml INJ (0.5MMOL/ml) IV ONE (17:39)
[2022-11-06] MEDS: ATORVASTATIN 20 MG TAB PO SCH (21:48)
[2022-11-06] MEDS: SULFAMETHOX W/TRIMETH(800/160MG) DS TAB PO SCH (21:49)
[2022-11-06] MEDS: Vortioxetine Hydrobromide (Trintellix) 10 MG PO SCH (21:49)
[2022-11-06] MEDS: ARIPIPRAZOLE PO SCH (21:49)
[2022-11-06] MEDS: TEMAZEPAM 15 MG CAP PO PRN (21:50)
[2022-11-07] VITALS (7 sets, daily range): BP systolic 126–145; BP diastolic 63–85; PULSE 61–113; RESP 16–18; TEMP 97.4–98.3; O2SAT 98–99
[2022-11-07] MEDS: ACETAMINOPHEN 325 MG TAB PO PRN ×3 (02:00→23:53)
[2022-11-07] MEDS: ACCU-CHEK COMFORT CURVE STRIP VI SCH ×4 (06:24→21:29)
[2022-11-07] MEDS: INSULIN LANTUS (GLARGINE) 1 /0.01ml (100units/ml) SC SCH (06:44)
[2022-11-07] MEDS: InsuLIN REG 1unit/0.01ml Soln (100units/ml) SC SCH ×4 (06:44→21:33)
[2022-11-07 06:56] LABS: BUN/Creatinine Ratio 18.2 (10.0-20.0); Calcium 9.6 mg/dL (8.5-10.1); Potassium 4.2 mmol/L (3.5-5.1)
[2022-11-07] MEDS ORDERED: INSULIN LANTUS (GLARGINE) 1 /0.01ml (100units/ml) SC ONE (07:15)
[2022-11-07] MEDS: LISINOPRIL 20 MG TAB PO SCH (10:05)
[2022-11-07] MEDS: SULFAMETHOX W/TRIMETH(800/160MG) DS TAB PO SCH ×2 (10:05→21:34)
[2022-11-07] MEDS: NIFEdipine ER 30 MG TAB PO SCH (10:06)
[2022-11-07] MEDS: ATORVASTATIN 20 MG TAB PO SCH (21:34)
[2022-11-07] MEDS: ARIPIPRAZOLE PO SCH (21:35)
[2022-11-07] MEDS: Vortioxetine Hydrobromide (Trintellix) 10 MG PO SCH (21:35)
[2022-11-07] MEDS: TEMAZEPAM 15 MG CAP PO PRN (23:53)
[2022-11-08 05:00] VITALS: BP 123/67; PULSE 72; RESP 18; TEMP 97.5; O2SAT 97
[2022-11-08 05:40] LABS: Basophils # (auto) 0.1 10 ^3/uL (0-0.2); Basophils % (auto) 1.1 % (0.0-2.0); Eosinophils # (auto) 0.2 10 ^3/uL (0-0.8); Eosinophils % (auto) 3.9 % (0.0-7.0); Hematocrit 28.5 % (36.0-46.0); Hemoglobin 9.7 g/dL (12.2-16.2); Mean Corpuscular Hemoglobin 31.1 pg (28.0-32.0); Mean Corpuscular Volume 91.6 fL (80.0-100.0); Monocytes # (auto) 0.4 10 ^3/uL (0-1.3); Monocytes % (auto) 7.8 % (0.0-12.0); Neutrophils # (auto) 3.1 10 ^3/uL (1.6-8.6); Neutrophils % (auto) 53.2 % (37.0-80.0); Red Blood Cells 3.11 10^6/uL (4.0-5.20); Red Cell Distribution Width 13.1 % (11.8-14.3); White Blood Cell 5.8 10^3/uL (4.4-10.8)
[2022-11-08] MEDS: ACCU-CHEK COMFORT CURVE STRIP VI SCH ×4 (05:42→21:51)
[2022-11-08] MEDS: INSULIN LANTUS (GLARGINE) 1 /0.01ml (100units/ml) SC SCH (05:47)
[2022-11-08] MEDS: InsuLIN REG 1unit/0.01ml Soln (100units/ml) SC SCH ×4 (05:48→21:50)
[2022-11-08 05:57] LABS: Potassium 4.3 mmol/L (3.5-5.1)
[2022-11-08 06:04] LABS: BUN/Creatinine Ratio 17.4 (10.0-20.0); Calcium 9.8 mg/dL (8.5-10.1); Magnesium 1.8 mg/dL (1.6-2.6)
[2022-11-08] MEDS: SULFAMETHOX W/TRIMETH(800/160MG) DS TAB PO SCH ×2 (09:27→21:51)
[2022-11-08] MEDS: NIFEdipine ER 30 MG TAB PO SCH (09:28)
[2022-11-08] MEDS: ACETAMINOPHEN 325 MG TAB PO PRN ×2 (09:28→20:37)
[2022-11-08 09:29] VITALS: BP 149/81; PULSE 70; RESP 18; TEMP 98.3; O2SAT 99
[2022-11-08] MEDS: LISINOPRIL 20 MG TAB PO SCH (09:29)
[2022-11-08 13:17] VITALS: BP 148/69; PULSE 69; RESP 18; TEMP 97.8; O2SAT 98
[2022-11-08 20:00] VITALS: BP 155/74; PULSE 76; PULSE 84; RESP 18; TEMP 97.9
[2022-11-08] MEDS: ATORVASTATIN 20 MG TAB PO SCH (21:51)
[2022-11-08] MEDS: TEMAZEPAM 15 MG CAP PO PRN (21:51)
[2022-11-08] MEDS: ARIPIPRAZOLE PO SCH (21:54)
[2022-11-08] MEDS: Vortioxetine Hydrobromide (Trintellix) 10 MG PO SCH (21:54)
[2022-11-08 22:00] VITALS: BP 155/74; PULSE 76; RESP 18; TEMP 97.9; O2SAT 98
[2022-11-09] VITALS (8 sets, daily range): BP systolic 123–159; BP diastolic 71–84; PULSE 54–99; RESP 16–22; TEMP 97.3–98.2; O2SAT 97–100
[2022-11-09] MEDS: ACETAMINOPHEN 325 MG TAB PO PRN ×3 (03:28→18:54)
[2022-11-09] MEDS: InsuLIN REG 1unit/0.01ml Soln (100units/ml) SC SCH ×4 (06:22→22:36)
[2022-11-09] MEDS: ACCU-CHEK COMFORT CURVE STRIP VI SCH ×4 (06:23→22:32)
[2022-11-09] MEDS: INSULIN LANTUS (GLARGINE) 1 /0.01ml (100units/ml) SC SCH (06:23)
[2022-11-09] MEDS: SULFAMETHOX W/TRIMETH(800/160MG) DS TAB PO SCH ×2 (09:42→22:26)
[2022-11-09] MEDS: LISINOPRIL 20 MG TAB PO SCH (09:43)
[2022-11-09] MEDS: NIFEdipine ER 30 MG TAB PO SCH (09:44)
[2022-11-09] MEDS: ATORVASTATIN 20 MG TAB PO SCH (22:26)
[2022-11-09] MEDS: TEMAZEPAM 15 MG CAP PO PRN (22:31)
[2022-11-09] MEDS: ARIPIPRAZOLE PO SCH (22:37)
[2022-11-09] MEDS: Vortioxetine Hydrobromide (Trintellix) 10 MG PO SCH (22:37)
[2022-11-10] VITALS (7 sets, daily range): BP systolic 125–157; BP diastolic 71–86; PULSE 59–106; RESP 18–21; TEMP 97.6–98; O2SAT 97–100
[2022-11-10] MEDS: HYDROcodone-ACET 5/325MG TAB PO PRN ×3 (00:45→20:40)
[2022-11-10] MEDS: INSULIN LANTUS (GLARGINE) 1 /0.01ml (100units/ml) SC SCH (06:34)
[2022-11-10] MEDS: InsuLIN REG 1unit/0.01ml Soln (100units/ml) SC SCH ×4 (06:35→21:43)
[2022-11-10] MEDS: ACCU-CHEK COMFORT CURVE STRIP VI SCH ×4 (06:35→21:34)
[2022-11-10] MEDS ORDERED: INSULIN LANTUS (GLARGINE) 1 /0.01ml (100units/ml) SC ONE (07:15)
[2022-11-10 08:22] LABS: Basophils # (auto) 0.1 10 ^3/uL (0-0.2); Basophils % (auto) 1.2 % (0.0-2.0); Eosinophils # (auto) 0.3 10 ^3/uL (0-0.8); Eosinophils % (auto) 5.1 % (0.0-7.0); Hematocrit 30.5 % (36.0-46.0); Hemoglobin 10.1 g/dL (12.2-16.2); Lymphocytes % (auto) 37.3 % (10.0-50.0); Mean Corpuscular Hemoglobin 30.4 pg (28.0-32.0); Mean Corpuscular Hgb Conc. 32.9 g/dL (32.0-36.0); Mean Corpuscular Volume 92.4 fL (80.0-100.0); Monocytes # (auto) 0.4 10 ^3/uL (0-1.3); Monocytes % (auto) 7.8 % (0.0-12.0); Neutrophils # (auto) 2.7 10 ^3/uL (1.6-8.6); Neutrophils % (auto) 48.6 % (37.0-80.0); White Blood Cell 5.5 10^3/uL (4.4-10.8)
[2022-11-10 08:42] LABS: Potassium 5.3 mmol/L (3.5-5.1)
[2022-11-10 08:46] LABS: BUN/Creatinine Ratio 16.4 (10.0-20.0); Calcium 10.5 mg/dL (8.5-10.1)
[2022-11-10] MEDS: SULFAMETHOX W/TRIMETH(800/160MG) DS TAB PO SCH ×2 (09:18→21:30)
[2022-11-10] MEDS: LISINOPRIL 20 MG TAB PO SCH (09:19)
[2022-11-10] MEDS: NIFEdipine ER 30 MG TAB PO SCH (09:20)
[2022-11-10] MEDS: ACETAMINOPHEN 325 MG TAB PO PRN ×3 (09:22→23:40)
[2022-11-10] MEDS ORDERED: ATOR20TA50 PO (09:52)
[2022-11-10] MEDS ORDERED: DEXTROSE (50%) 50ML SYRG IV ONE ×2 (11:15→16:00)
[2022-11-10] MEDS ORDERED: InsuLIN REG 1unit/0.01ml Soln (100units/ml) IV ONE ×2 (11:15→16:00)
[2022-11-10] MEDS ORDERED: FUROSEMIDE 20 MG/2 ML VIAL IV ONE ×2 (11:15→16:00)
[2022-11-10] MEDS ORDERED: SODIUM BICARBONATE 8.4% INJ 50ML SYRINGE IV ONE (16:00)
[2022-11-10] MEDS ORDERED: ALBUTEROL SULF 2.5 MG/0.5ML(0.5%) NEB SOLN NEB ONE (16:00)
[2022-11-10] MEDS ORDERED: SODIUM ZIRCONIUM CYCL 10 GM PAK PO ONE (16:00)
[2022-11-10] MEDS: TEMAZEPAM 15 MG CAP PO PRN (21:30)
[2022-11-10] MEDS: Vortioxetine Hydrobromide (Trintellix) 10 MG PO SCH (21:30)
[2022-11-10] MEDS: ATORVASTATIN 20 MG TAB PO SCH (21:30)
[2022-11-10] MEDS: ARIPIPRAZOLE PO SCH (21:31)
[2022-11-10 22:01] LABS: BUN/Creatinine Ratio 15.2 (10.0-20.0); Calcium 9.6 mg/dL (8.5-10.1); Potassium 4.4 mmol/L (3.5-5.1)
[2022-11-11 05:00] VITALS: BP 127/61; PULSE 73; RESP 18; TEMP 97.5; O2SAT 98
[2022-11-11] MEDS: HYDROcodone-ACET 5/325MG TAB PO PRN ×2 (05:00→13:08)
[2022-11-11] MEDS: InsuLIN REG 1unit/0.01ml Soln (100units/ml) SC SCH ×2 (06:26→12:11)
[2022-11-11] MEDS: ACCU-CHEK COMFORT CURVE STRIP VI SCH ×2 (06:29→12:11)
[2022-11-11] MEDS ORDERED: INSULIN LANTUS (GLARGINE) 1 /0.01ml (100units/ml) SC SCH (07:00)
[2022-11-11 08:00] VITALS: PULSE 71
[2022-11-11 08:29] VITALS: BP 129/75; PULSE 77; RESP 20; TEMP 97.4; O2SAT 98
[2022-11-11 10:07] LABS: Basophils # (auto) 0.1 10 ^3/uL (0-0.2); Basophils % (auto) 1.1 % (0.0-2.0); Eosinophils # (auto) 0.3 10 ^3/uL (0-0.8); Eosinophils % (auto) 5.1 % (0.0-7.0); Hematocrit 28.4 % (36.0-46.0); Hemoglobin 9.6 g/dL (12.2-16.2); Lymphocytes # (auto) 1.7 10 ^3/uL (0.4-5.4); Lymphocytes % (auto) 31.3 % (10.0-50.0); Mean Corpuscular Hemoglobin 30.9 pg (28.0-32.0); Mean Corpuscular Hgb Conc. 33.9 g/dL (32.0-36.0); Mean Corpuscular Volume 91.2 fL (80.0-100.0); Monocytes # (auto) 0.4 10 ^3/uL (0-1.3); Monocytes % (auto) 6.5 % (0.0-12.0); Neutrophils # (auto) 3.1 10 ^3/uL (1.6-8.6); Nucleated Red Blood Cells % 0.1 %; Red Blood Cells 3.12 10^6/uL (4.0-5.20); Red Cell Distribution Width 13.1 % (11.8-14.3); White Blood Cell 5.4 10^3/uL (4.4-10.8)
[2022-11-11] MEDS: NIFEdipine ER 30 MG TAB PO SCH (10:42)
[2022-11-11] MEDS: LISINOPRIL 20 MG TAB PO SCH (10:43)
[2022-11-11] MEDS: SULFAMETHOX W/TRIMETH(800/160MG) DS TAB PO SCH (10:43)
[2022-11-11 12:38] VITALS: BP 132/72; PULSE 70; RESP 20; TEMP 98.2; O2SAT 100
[2022-11-11 15:02] VITALS: BP 132/72; PULSE 70; RESP 20; TEMP 98.2; O2SAT 100
[2022-11-11 16:50] VITALS: BP 142/63; PULSE 64; RESP 21; TEMP 97.6; O2SAT 98
== END 2022-11-11 17:06 | disposition home or self-care (01) | DRG 426 ==
LOC: EDBD 21:14 → ER 21:14 → TELE 11-05 03:05 → TELE-EAST 11-05 16:35
PROVIDERS: ADMIT Internal Medicine Pulmonary Disease
DX: E87.1 Hypo-osmolality and hyponatremia (principal); E44.1 Mild protein-calorie malnutrition; D64.9 Anemia, unspecified; E11.9 Type 2 diabetes mellitus without complications; E27.9 Disorder of adrenal gland, unspecified; E78.5 Hyperlipidemia, unspecified; N39.0 Urinary tract infection, site not specified; I48.91 Unspecified atrial fibrillation; I10 Essential (primary) hypertension; E87.5 Hyperkalemia; R00.1 Bradycardia, unspecified; J45.909 Unspecified asthma, uncomplicated; Z95.1 Presence of aortocoronary bypass graft; Z68.34 Body mass index [BMI] 34.0-34.9, adult; Z87.891 Personal history of nicotine dependence; I25.2 Old myocardial infarction; Z91.040 Latex allergy status; Z88.8 Allergy status to other drugs, medicaments and biological substances
CPT/HCPCS: 36415; 70450; 70551; 71045; 74183; 80048; 80053; 80061; 81001; 82962; 83735; 83835; 83880; 84132; 84484; 85025; 85610; 85730; 87081; 93005; 94640; G0378; J1815; J3490

== ENCOUNTER 2024-11-22 07:41 | Day surgery (SDC) | payer OTHER, MEDICAID ==
[~2024-11-22] VITALS: Ht 165.1 cm; Wt 101.6 kg
[2024-11-22] VITALS (9 sets, daily range): BP systolic 120–163; BP diastolic 48–74; PULSE 50–60; RESP 12–17; O2SAT 92–100
[~2024-11-22 07:41] MED LIST changes: -AML5T PO; +ATOR20TA50 PO; -BENZ1TAB6 PO; -BUPR150T8 PO; -DULO1CAP6 PO; -HAL5T PO; -HYDRX10T PO; +INSU100I64 SC; -INSU1INJ19 SC; -LAMO25TA2 PO; -LOVA20TA4 PO; -METO25TA5 PO; -POTA-180 PO; -TRAZ-228 PO
[2024-11-22] MEDS ORDERED: ANGIOMAX 250 MG VIAL IV ONE (09:10)
[2024-11-22] MEDS ORDERED: fentaNYL CITRATE 100 MCG/2 ML VL ONE (09:10)
[2024-11-22] MEDS ORDERED: SODIUM CHL 0.9% 50 ML ONE (09:11)
[2024-11-22] MEDS ORDERED: MIDAZOLAM HCL 2MG/2ML 2ml VIAL (1mg/ml) ONE (09:11)
[2024-11-22] MEDS ORDERED: LIDOCAINE 2%HCL (LOCAL ANESTH.) INJ 20ML MDV ONE (09:11)
[2024-11-22] MEDS ORDERED: diphenhdrAMINE HCL 50 MG/1 ML VL ONE (09:14)
[2024-11-22] MEDS ORDERED: FAMOTIDINE (10MG/ML) 2ML VL IV ONE (09:14)
[2024-11-22] MEDS ORDERED: methylPREDNISolone SOD SUCC 125 MG/2 ML VL ONE (09:14)
--- NOTE | 2024-11-22 09:18 | ECG ---
[facility] Test Date: 2024-11-22 Test Time: 08:52:23 Pat Name: SAWYER MARK Department: Room: Gender: F Dog Barber: : 1960 Requested By: ROBBI PIMENTEL Order Number: [id number] Reading MD: Dmitry Rios Measurements Intervals [place] Rate: 48 P: 40 MS: 162 QRS: -8 QRSD: 118 T: 13 QT: 494 QTc: 441 Interpretive Statements Marked sinus bradycardia Septal infarct , age undetermined Electronically Signed On 11-28-2024 22:11:19 PDT by Dmitry Rios Please click the below link to view image of tracing.
[2024-11-22] MEDS ORDERED: IODIXANOL 320MG/ML 100ML BTL IV ONE (10:05)
[2024-11-22] MEDS ORDERED: ATROPINE SULF 1 MG/10ml SYR ONE (10:10)
[2024-11-22] MEDS ORDERED: CLOPIDOGREL BISULFATE 75 MG TAB ONE (10:17)
[2024-11-22] MEDS ORDERED: SODIUM CHLORIDE 0.9% 1,500 ML IV ONE (10:22)
--- NOTE | 2024-11-22 10:45 | DVHOP2 ---
Operative Report Procedures performed: Left heart catheterization and bilateral coronary angiogram Bypass angiography Aortic root angiography FFR of RCA PCI (drug-eluting stent deployment) of proximal RCA Diagnosis: LVEF of 55% Increased LVEDP Multivessel coronary artery disease Patent DIAMOND to mid LAD Patent SVG to obtuse marginal with good retrograde flow into LCX Proximal RCA disease (75%) with positive FFR Status post PCI/drug-eluting stent deployment of proximal RCA Cardiac suggestion for management: Optimized medical therapy Dual antiplatelet therapy (loaded with aspirin/Plavix) for at least 1 year High potency statin, beta blockers and GUILHERME inhibitors versus ARB Lifestyle and risk factor modifications Findings: LVEF: 55% LVEDP: 27 mm Hg There was no transaortic valve pressure gradient Left main: Left main was coming off the left sinus of Valsalva. There was 90% distal left main disease. LAD: LAD was coming off the left main. Ostial LAD had 95% lesion. Proximal LAD had 70% lesion. Mid LAD had 80% lesion. LAD was nourished via a patent DIAMOND to mid LAD. Ramus intermedius: Ramus intermedius was a small caliber vessel with 80% ostial disease. LCX: LCX was coming off the left main. It had 95% ostial lesion. OM1 was a medium-sized vessel which showed competitive flow, revealing patent SVG. OM2 was medium-sized vessel with 70% proximal disease. RCA: RCA was coming off the right sinus of Valsalva. It was a dominant vessel and provided RPDA. There was 75% lesion proximal RCA. Other portions of RCA had mild diffuse disease. FFR (cathworks) of RCA was performed and the result was 0.79 (was considered hemodynamically significant lesion). DIAMOND: DIAMOND was a large caliber vessel and nourished mid LAD. DIAMOND was free of disease SVG: SVG was large-sized vessel, free of disease which nourished OM/LCX Presentation: Patient is a 63-year-old female with past medical history of diabetes mellitus, CKD, anemia, hypertension, hyperlipidemia, asthma, schizoaffective disorder, morbid obesity, coronary artery disease and status post CABG, SVT, nonsustained V-tach and old history of bilateral adrenal lesions. She has had gallstones before also. Echocardiogram of August 2024 revealed ejection fraction of 65%, mild left atrial enlargement, mild mitral annual calcification/MR/TR. There was no pulmonary hypertension. Nuclear stress test of September 2019 3 was abnormal. Patient is known to have distal left main/ostial LAD/ostial LCX disease in previous cardiac catheterization (prior to CABG). Patient is also known to have CKD and was seen/cleared by Nephrology for the procedure. Patient was sent for cardiac catheterization. Procedure: After obtaining informed consent, the patient was brought to the [facility] [employer] [facility]. She was prepped and draped in sterile fashion. Right femoral artery was used for access site. 2 mg of Versed and 75 mcg of fentanyl were used for moderate sedation (lasting more than 30 minutes). As the patient had history of allergy to contrast dye, she was given the cocktail (Solu- Medrol/famotidine/Benadryl). Under the guidance of fluoroscopy and also the use of micropuncture, the right femoral artery was accessed. After angiographically proving a good access point, the micropuncture sheath was exchanged over a wire to a 6 [place] femoral sheath. A 6 [place] JL4 diagnostic catheter was used to perform left coronary angiography. A 6 [place] JR4 diagnostic catheter was used to perform right coronary angiography, SVG to obtuse marginal angiography, DIAMOND angiography to LAD. A 6 [place] pigtail catheter was used to perform left heart catheterization (obtaining pressures and performing left ventriculography) and also aortic root/ascending aortography. Cathworks FFR of the proximal RCA lesion was performed. The result was 0.79 and was considered hemodynamically significant lesion. Decision was made to proceed with intervention. Patient was started on Angiomax. A 6 [place] JR4 guiding catheter was used to access the right coronary system. A run-through wire was used to cross the lesion in proximal RCA into distal portions of RCA. A 2.5 x 10 compliant balloon was used for predilatation. A 2.75 x 18 drug-eluting/shola stent was deployed across the lesion in proximal RCA. We did use a 2.75 x 15 noncompliant balloon for postdilatation. Prior to intervention, ELENA flow into RCA was ELENA 3 flow. Post intervention, ELENA flow remained ELENA 3 flow in RCA. Post intervention, remaining disease in RCA was 5%. There was no dissection/hematoma/perforation. Total bleeding was less than 10 mL. Patient tolerated the procedure with no complication. Right femoral artery access site was managed by deploying an Stacie o-Seal device. Fluoroscopy time: 11.8 minutes contrast: 150 mL of Visipaque ROBBI PIMENTEL MD Nov 22, 2024 10:45
== END 2024-11-22 14:06 | disposition home or self-care (01) ==
LOC: CATH 07:41
PROVIDERS: ATTEND Internal Medicine Cardiovascular Disease
DX: I25.810 Atherosclerosis of coronary artery bypass graft(s) without angina pectoris (principal); R94.39 Abnormal result of other cardiovascular function study; I08.1 Rheumatic disorders of both mitral and tricuspid valves; I47.10 Supraventricular tachycardia, unspecified; I12.9 Hypertensive chronic kidney disease with stage 1 through stage 4 chronic kidney disease, or unspecified chronic kidney disease; E11.22 Type 2 diabetes mellitus with diabetic chronic kidney disease; N18.9 Chronic kidney disease, unspecified; E78.5 Hyperlipidemia, unspecified; J45.909 Unspecified asthma, uncomplicated; K80.20 Calculus of gallbladder without cholecystitis without obstruction; F25.9 Schizoaffective disorder, unspecified; E66.01 Morbid (severe) obesity due to excess calories; Z68.37 Body mass index [BMI] 37.0-37.9, adult; Z79.4 Long term (current) use of insulin; Z79.899 Other long term (current) drug therapy; Z86.2 Personal history of diseases of the blood and blood-forming organs and certain disorders involving the immune mechanism; Z95.1 Presence of aortocoronary bypass graft; Z95.5 Presence of coronary angioplasty implant and graft; Z98.890 Other specified postprocedural states; Z87.891 Personal history of nicotine dependence; Z88.6 Allergy status to analgesic agent; Z91.041 Radiographic dye allergy status; Z91.040 Latex allergy status
CPT/HCPCS: 0523T; 93005; 93459; C1725; C1760; C1769; C1874; C1894; C9600; J0583; J1200; J1644; J2250; J2919; J3010; J3490; Q9967; 99152; 99153